=== PATIENT | male | born 2000 | race Caucasian/White ===

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

== ENCOUNTER 2020-02-23 05:52 | Inpatient (IN) | payer MEDICAID ==
[~2020-02-23] VITALS: Ht 165.1 cm; Wt 112.9 kg
[2020-02-23] MEDS ORDERED: SODIUM CHLORIDE 0.9% 1,000 ML IV ONE (06:44)
[2020-02-23] MEDS ORDERED: LEVETIRACETAM 1000MG/100ML 100 ML IV ONE (06:45)
[2020-02-23] MEDS ORDERED: ACETAMINOPHEN 650MG SUPP PR ONE (06:45)
[2020-02-23 06:54] LABS: BASOPHILS % 0.6 % (0.0-2.0); EOSINOPHILS % 2.3 % (0.0-5.0); HEMOGLOBIN. 15.4 g/dL (14.0-18.0); LYMPHOCYTES % 32.2 % (20.0-50.0); MEAN CORPUSCULAR HEMOGLOBIN 29.3 pg (28.0-32.0); MEAN CORPUSCULAR VOLUME 87.5 fL (80.0-94.0); MEAN PLATELET VOLUME 7.8 fl (7.4-10.4); MONOCYTES % 4.1 % (2.0-8.0); NEUTROPHILS % 60.8 % (40.0-76.0); PLATELET 375 x1000/uL (130-400); RED BLOOD CELL COUNT 5.26 mill/uL (4.7-6.1); RED CELL DISTRIBUTION WIDTH 13.4 % (11.6-14.6)
[2020-02-23 07:00] LABS: CHLORIDE 109 mEq/L (98-107)
[2020-02-23 07:01] LABS: PROTHROMBIN TIME 10.3 sec (9.6-11.0)
[2020-02-23] MEDS ORDERED: PIPERACILLIN/TAZ 3.375G PREMIX 50 ML IV ONE (07:30)
[2020-02-23] MEDS ORDERED: VANCOMYCIN 1 G PREMIX 200 ML IV ONE (07:30)
[2020-02-23] MEDS ORDERED: CLONIDINE 0.1MG TABLET PO PRN (11:00)
[2020-02-23] MEDS ORDERED: LORAZEPAM 2MG/ML CPJ IV PRN (11:00)
[2020-02-23] MEDS ORDERED: ONDANSETRON HCL 4MG/2ML INJ IV PRN (11:00)
[2020-02-23] MEDS ORDERED: IPRATROPIUM/ALBUTEROL 0.5-3(2.5)MG/3ML NEB HHN PRN (11:00)
[2020-02-23] MEDS ORDERED: NITROGLYCERIN 0.4MG TABLET SL SL PRN (11:00)
[2020-02-23] MEDS ORDERED: MAGNESIUM/ALUMINUM HYDROXIDE/SIMETHICONE 30ML UDC PO PRN (11:00)
[2020-02-23] MEDS ORDERED: DIPHENHYDRAMINE 50MG/ML VIAL IV PRN (11:00)
[2020-02-23] MEDS ORDERED: KETOROLAC 15MG/ML VIAL IV PRN (11:00)
[2020-02-23] MEDS ORDERED: DOCUSATE SODIUM 100MG CAPSULE PO PRN (11:00)
[2020-02-23] MEDS ORDERED: GUAIFENESIN 200MG/10ML SUGAR FREE UDC PO PRN (11:00)
[2020-02-23] MEDS ORDERED: ACETAMINOPHEN 325MG TABLET PO PRN ×2 (11:00)
[2020-02-23] MEDS ORDERED: CEFTRIAXONE 1 G PREMIX 50 ML IV NR (11:15)
[2020-02-23 12:28] LABS: CLARITY URINE CLOUDY (CLEAR); COLOR URINE YELLOW (YELLOW); KETONES URINE NEGATIVE (NEGATIVE); LEUKOCYTE ESTERASE URINE NEGATIVE (NEGATIVE); NITRITE URINE NEGATIVE (NEGATIVE); OCCULT BLOOD URINE 2+ (NEGATIVE); PROTEIN URINE 1+ (NEGATIVE); SPECIFIC GRAVITY URINE 1.012 (1.005-1.030); UROBILINOGEN URINE 0.2 E.U./dL (0.2-1.0)
[2020-02-23 12:56] LABS: *AMPHETAMINES SCREEN URINE NEGATIVE (NEGATIVE); *BARBITURATES SCREEN URINE NEGATIVE (NEGATIVE); *BENZODIAZEPINES SCREEN URINE PRESUMTIVE POSITIVE (NEGATIVE); *COCAINE SCREEN URINE NEGATIVE (NEGATIVE)
[2020-02-23 12:57] LABS: CHLORIDE 113 mEq/L (98-107)
[2020-02-23 12:57] LABS: CANNABINOID URINE SCREEN NEGATIVE (NEGATIVE); METHADONE URINE SCREEN NEGATIVE (NEGATIVE); OPIATES URINE SCREEN NEGATIVE (NEGATIVE); PHENCYCLIDINE URINE SCREEN NEGATIVE (NEGATIVE)
[2020-02-23] MEDS ORDERED: LEVETIRACETAM 500MG PREMIX 100 ML IV SCH (21:00)
[2020-02-23] MEDS ORDERED: ZOLPIDEM TARTRATE 5MG TABLET PO PRN (21:00)
[2020-02-23] MEDS ORDERED: ZONISAMIDE 100MG CAPSULE PO SCH (22:30)
[2020-02-23] MEDS: ASCORBIC ACID 500 MG TABLET PO SCH (22:58)
[2020-02-23] MEDS: LAMOTRIGINE 100MG TABLET PO SCH (22:59)
[2020-02-23] MEDS: TOPIRAMATE 100MG TABLET PO SCH (22:59)
[2020-02-23 23:21] VITALS: BP 121/71
[2020-02-24 06:06] VITALS: BP 122/71
[2020-02-24 07:17] LABS: CHLORIDE 111 mEq/L (98-107)
[2020-02-24 07:54] LABS: BASOPHILS % 0.7 % (0.0-2.0); EOSINOPHILS % 2.5 % (0.0-5.0); HEMATOCRIT. 42.7 % (42.0-52.0); HEMOGLOBIN. 14.7 g/dL (14.0-18.0); LYMPHOCYTES % 31.7 % (20.0-50.0); MEAN CORPUSCULAR HEMOGLOBIN 29.2 pg (28.0-32.0); MEAN CORPUSCULAR VOLUME 84.8 fL (80.0-94.0); MEAN PLATELET VOLUME 7.9 fl (7.4-10.4); MONOCYTES % 6.1 % (2.0-8.0); PLATELET 244 x1000/uL (130-400); RED BLOOD CELL COUNT 5.04 mill/uL (4.7-6.1); RED CELL DISTRIBUTION WIDTH 13.1 % (11.6-14.6)
[2020-02-24 08:00] VITALS: BP 135/78
[2020-02-24] MEDS ORDERED: CEFTRIAXONE 1 G PREMIX 50 ML IV SCH (09:00)
[2020-02-24] MEDS: LAMOTRIGINE 100MG TABLET PO SCH ×2 (09:37→21:27)
[2020-02-24] MEDS: ASCORBIC ACID 500 MG TABLET PO SCH ×2 (09:37→21:28)
[2020-02-24] MEDS: ZINC SULFATE 220 MG ( 50 ) CAPSULE PO SCH (09:38)
[2020-02-24] MEDS: TOPIRAMATE 100MG TABLET PO SCH ×2 (09:38→21:27)
[2020-02-24] MEDS: LEVETIRACETAM 500MG TABLET PO SCH ×2 (11:54→21:28)
[2020-02-24 12:00] VITALS: BP 135/82
[2020-02-24] MEDS ORDERED: LEVETIRACETAM 500MG PREMIX 100 ML IV SCH (12:00)
[2020-02-24] MEDS: CEFTRIAXONE 1,000 MG in DEXTROSE 5% WATER 50 ML IV SCH (12:24)
[2020-02-24 16:00] VITALS: BP 135/85
[2020-02-24 20:00] VITALS: BP 115/58
[2020-02-24] MEDS ORDERED: ZONISAMIDE 100MG CAPSULE PO SCH (21:00)
[2020-02-25] VITALS: BP 116/69
[2020-02-25 04:00] VITALS: BP 113/56
[2020-02-25 08:00] VITALS: BP 134/59
[2020-02-25] MEDS: LAMOTRIGINE 100MG TABLET PO SCH (09:30)
[2020-02-25] MEDS: ASCORBIC ACID 500 MG TABLET PO SCH (09:30)
[2020-02-25] MEDS: TOPIRAMATE 100MG TABLET PO SCH (09:30)
[2020-02-25] MEDS: ZINC SULFATE 220 MG ( 50 ) CAPSULE PO SCH (09:30)
[2020-02-25] MEDS: LEVETIRACETAM 500MG TABLET PO SCH (09:30)
[2020-02-25] MEDS: CEFTRIAXONE 1,000 MG in DEXTROSE 5% WATER 50 ML IV SCH ×2 (11:00→11:24)
[2020-02-25 12:00] VITALS: BP 105/70
[2020-02-25 13:53] VITALS: BP 105/77
== END 2020-02-25 16:00 | disposition home or self-care (01) | DRG 53 ==
LOC: ER 05:52 → 7WST 10:11 → EDBEDREQ 10:13 → EDBEDREQTM 10:13 → EDBEDREQSVC 10:13 → ENRESERV 20:45 → 5WST 02-24 17:00
PROVIDERS: ADMIT Internal Medicine; ATTEND Internal Medicine
DX: G40.909 Epilepsy, unspecified, not intractable, without status epilepticus (principal); G92 Toxic encephalopathy; J69.0 Pneumonitis due to inhalation of food and vomit; N17.9 Acute kidney failure, unspecified; Z20.828 Contact with and (suspected) exposure to other viral communicable diseases; F84.0 Autistic disorder; E87.2 Acidosis; Z91.012 Allergy to eggs; Z79.2 Long term (current) use of antibiotics; Z79.899 Other long term (current) drug therapy
CPT/HCPCS: 36415; 71045; 80048; 80053; 80305; 81003; 83605; 83735; 84100; 84145; 84484; 85025; 87635; 93005; 96365; 99291; J0696; J1953; J2543; J3370; J7030; J7060

== ENCOUNTER 2020-02-26 20:49 | Inpatient (IN) | payer MEDICAID ==
[~2020-02-26] VITALS: Ht 170.2 cm; Wt 115.7 kg
[2020-02-26] MEDS ORDERED: LEVETIRACETAM 1000MG/100ML 100 ML IV ONE (21:00)
[2020-02-26] MEDS ORDERED: SODIUM CHLORIDE 0.9% 1,000 ML IV ONE ×2 (21:02→22:51)
[2020-02-26 21:37] LABS: BASOPHILS % 0.5 % (0.0-2.0); EOSINOPHILS % 1.1 % (0.0-5.0); HEMATOCRIT. 45.1 % (42.0-52.0); HEMOGLOBIN. 15.2 g/dL (14.0-18.0); LYMPHOCYTES % 13.2 % (20.0-50.0); MEAN CORPUSCULAR HEMOGLOBIN 28.9 pg (28.0-32.0); MEAN CORPUSCULAR VOLUME 85.8 fL (80.0-94.0); MEAN PLATELET VOLUME 8.3 fl (7.4-10.4); MONOCYTES % 2.5 % (2.0-8.0); NEUTROPHILS % 82.7 % (40.0-76.0); RED BLOOD CELL COUNT 5.25 mill/uL (4.7-6.1); RED CELL DISTRIBUTION WIDTH 13.1 % (11.6-14.6)
[2020-02-26 21:40] LABS: CHLORIDE 112 mEq/L (98-107)
[2020-02-26 21:41] LABS: PLATELET 361 x1000/uL (130-400)
[2020-02-26 21:44] LABS: ETHANOL BLOOD < 10 mg/dL
[2020-02-26 21:52] LABS: CLARITY URINE CLOUDY (CLEAR); COLOR URINE YELLOW (YELLOW); KETONES URINE NEGATIVE (NEGATIVE); LEUKOCYTE ESTERASE URINE NEGATIVE (NEGATIVE); NITRITE URINE NEGATIVE (NEGATIVE); OCCULT BLOOD URINE 1+ (NEGATIVE); PROTEIN URINE 2+ (NEGATIVE); SPECIFIC GRAVITY URINE 1.017 (1.005-1.030); UROBILINOGEN URINE 0.2 E.U./dL (0.2-1.0)
[2020-02-26 22:02] LABS: *AMPHETAMINES SCREEN URINE NEGATIVE (NEGATIVE); *BARBITURATES SCREEN URINE NEGATIVE (NEGATIVE); *BENZODIAZEPINES SCREEN URINE PRESUMTIVE POSITIVE (NEGATIVE); *COCAINE SCREEN URINE NEGATIVE (NEGATIVE)
[2020-02-26 22:04] LABS: CANNABINOID URINE SCREEN NEGATIVE (NEGATIVE); METHADONE URINE SCREEN NEGATIVE (NEGATIVE); OPIATES URINE SCREEN NEGATIVE (NEGATIVE); PHENCYCLIDINE URINE SCREEN NEGATIVE (NEGATIVE)
[2020-02-26] MEDS ORDERED: ACETAMINOPHEN 325MG TABLET PO ONE (22:45)
[2020-02-26] MEDS ORDERED: CEFTRIAXONE 1 G PREMIX 50 ML IV ONE (22:45)
[2020-02-27 09:00] VITALS: BP 120/75
[2020-02-27] MEDS ORDERED: LORAZEPAM 2MG/ML CPJ IV PRN (09:30)
[2020-02-27] MEDS ORDERED: ACETAMINOPHEN 325MG TABLET PO PRN (09:30)
[2020-02-27] MEDS ORDERED: ONDANSETRON HCL 4MG/2ML INJ IV PRN (09:30)
[2020-02-27 15:32] LABS: BASOPHILS % 0.8 % (0.0-2.0); EOSINOPHILS % 1.6 % (0.0-5.0); HEMATOCRIT. 41.3 % (42.0-52.0); LYMPHOCYTES % 24.1 % (20.0-50.0); MEAN CORPUSCULAR HEMOGLOBIN 28.7 pg (28.0-32.0); MEAN CORPUSCULAR VOLUME 84.5 fL (80.0-94.0); MEAN PLATELET VOLUME 7.8 fl (7.4-10.4); MONOCYTES % 6.7 % (2.0-8.0); NEUTROPHILS % 66.8 % (40.0-76.0); PLATELET 284 x1000/uL (130-400); RED BLOOD CELL COUNT 4.89 mill/uL (4.7-6.1); RED CELL DISTRIBUTION WIDTH 13.4 % (11.6-14.6)
[2020-02-27 15:41] LABS: CHLORIDE 115 mEq/L (98-107)
[2020-02-27 20:00] VITALS: BP 134/79
[2020-02-27] MEDS: TOPIRAMATE 100MG TABLET PO SCH (21:23)
[2020-02-27] MEDS: LEVETIRACETAM 500MG TABLET PO SCH (21:23)
[2020-02-27] MEDS: LAMOTRIGINE 100MG TABLET PO SCH (21:23)
[2020-02-27] MEDS: ZONISAMIDE 100MG CAPSULE PO SCH (21:41)
[2020-02-28] VITALS: BP 116/69
[2020-02-28 04:00] VITALS: BP 118/69
[2020-02-28 08:00] VITALS: BP_SYST 121; BP_SYST 122; BP_DIAS 65; BP_DIAS 71
[2020-02-28] MEDS: LAMOTRIGINE 100MG TABLET PO SCH (08:17)
[2020-02-28] MEDS: ZONISAMIDE 100MG CAPSULE PO SCH (08:17)
[2020-02-28] MEDS: LEVETIRACETAM 500MG TABLET PO SCH (08:17)
[2020-02-28] MEDS: TOPIRAMATE 100MG TABLET PO SCH (08:17)
[2020-02-28 12:00] VITALS: BP 104/64
[2020-02-28 14:15] VITALS: BP 104/64
[2020-02-28 16:00] VITALS: BP 112/66
[2020-02-28] MEDS ORDERED: PIPERONYL/PYRETHRINS (RID)120 ML SHAMPOO TOP NR (17:00)
== END 2020-02-28 18:25 | disposition home or self-care (01) | DRG 53 ==
LOC: ER 20:49 → MICUSO 23:47 → UNDOADMIN 23:57 → MICUSO 23:57 → 8WST 02-27 07:36
PROVIDERS: ADMIT Internal Medicine Nephrology; ATTEND Internal Medicine
DX: G40.409 Other generalized epilepsy and epileptic syndromes, not intractable, without status epilepticus (principal); B85.2 Pediculosis, unspecified; E87.8 Other disorders of electrolyte and fluid balance, not elsewhere classified; F84.0 Autistic disorder; R65.10 Systemic inflammatory response syndrome (SIRS) of non-infectious origin without acute organ dysfunction; Z91.14 Patient's other noncompliance with medication regimen; Z91.19 Patient's noncompliance with other medical treatment and regimen; Z91.012 Allergy to eggs; Z79.2 Long term (current) use of antibiotics; Z79.899 Other long term (current) drug therapy
CPT/HCPCS: 36415; 71045; 80048; 80053; 80305; 80320; 81003; 82140; 84145; 85025; 93005; 99291; J0696; J1953; G0480

== ENCOUNTER 2020-03-04 23:16 | Emergency (ER) | payer MEDICAID ==
[~2020-03-04] VITALS: Ht 172.7 cm; Wt 76.0 kg
[~2020-03-04 23:16] MED LIST changes: -LEVO750T21 MT
[2020-03-04] MEDS ORDERED: SODIUM CHLORIDE 0.9% 1,000 ML IV ONE (23:24)
[2020-03-04] MEDS ORDERED: IBUPROFEN 600MG TABLET PO STA (23:24)
[2020-03-04] MEDS ORDERED: LORAZEPAM 1MG TABLET PO ONE (23:30)
[2020-03-05 00:54] LABS: HEMATOCRIT. 43.1 % (42.0-52.0); HEMOGLOBIN. 14.6 g/dL (14.0-18.0); MEAN CORPUSCULAR HEMOGLOBIN 29.1 pg (28.0-32.0); MEAN CORPUSCULAR VOLUME 86.1 fL (80.0-94.0); MEAN PLATELET VOLUME 8.4 fl (7.4-10.4); PLATELET 287 x1000/uL (130-400); RED BLOOD CELL COUNT 5.01 mill/uL (4.7-6.1); RED CELL DISTRIBUTION WIDTH 13.3 % (11.6-14.6)
[2020-03-05 01:04] LABS: CHLORIDE 115 mEq/L (98-107)
[2020-03-05 01:08] LABS: ETHANOL BLOOD < 10 mg/dL
[2020-03-05 01:08] LABS: CLARITY URINE CLEAR (CLEAR); COLOR URINE YELLOW (YELLOW); KETONES URINE NEGATIVE (NEGATIVE); LEUKOCYTE ESTERASE URINE NEGATIVE (NEGATIVE); NITRITE URINE NEGATIVE (NEGATIVE); OCCULT BLOOD URINE 1+ (NEGATIVE); PROTEIN URINE 2+ (NEGATIVE); SPECIFIC GRAVITY URINE 1.018 (1.005-1.030); UROBILINOGEN URINE 0.2 E.U./dL (0.2-1.0)
[2020-03-05] MEDS ORDERED: SODIUM CHLORIDE 0.9% 1000ML BAG (SEPSIS BOLUS) IV ONE (01:15)
[2020-03-05] MEDS ORDERED: LEVETIRACETAM 500MG PREMIX 100 ML IV SCH (01:15)
[2020-03-05 01:19] LABS: CANNABINOID URINE SCREEN NEGATIVE (NEGATIVE); OPIATES URINE SCREEN NEGATIVE (NEGATIVE); PHENCYCLIDINE URINE SCREEN NEGATIVE (NEGATIVE)
[2020-03-05 01:20] LABS: *AMPHETAMINES SCREEN URINE NEGATIVE (NEGATIVE); *BARBITURATES SCREEN URINE NEGATIVE (NEGATIVE); *BENZODIAZEPINES SCREEN URINE NEGATIVE (NEGATIVE); *COCAINE SCREEN URINE NEGATIVE (NEGATIVE); METHADONE URINE SCREEN NEGATIVE (NEGATIVE)
[2020-03-05 01:29] LABS: PLATELET ESTIMATE NORMAL
[2020-03-05 04:31] VITALS: BP 120/70
== END 2020-03-05 05:20 | disposition home or self-care (01) ==
LOC: ER 23:27
DX: R56.9 Unspecified convulsions (principal); D72.829 Elevated white blood cell count, unspecified; E87.2 Acidosis; Z91.012 Allergy to eggs; Z79.899 Other long term (current) drug therapy
CPT/HCPCS: 36415; 80053; 80305; 80320; 81003; 82140; 82962; 83605; 84145; 85025; 87040; 93005; 96361; 96374; 99284; J1953; J7030; G0480

== ENCOUNTER 2020-03-14 22:19 | Emergency (ER) | payer MEDICAID ==
[~2020-03-14] VITALS: Ht 170.2 cm; Wt 100.0 kg
[2020-03-14] MEDS ORDERED: ONDANSETRON HCL 4MG/2ML INJ IV STA (23:24)
[2020-03-14] MEDS ORDERED: SODIUM CHLORIDE 0.9% 1,000 ML IV ONE (23:24)
[2020-03-14] MEDS ORDERED: LEVETIRACETAM 500MG PREMIX 100 ML IV ONE (23:30)
[2020-03-14] MEDS ORDERED: LORAZEPAM 2MG/ML CPJ IV ONE (23:30)
[2020-03-15 00:18] LABS: BASOPHILS % 0.6 % (0.0-2.0); CHLORIDE 114 mEq/L (98-107); EOSINOPHILS % 0.4 % (0.0-5.0); HEMATOCRIT. 42.7 % (42.0-52.0); HEMOGLOBIN. 14.7 g/dL (14.0-18.0); LYMPHOCYTES % 8.6 % (20.0-50.0); MEAN CORPUSCULAR HEMOGLOBIN 29.1 pg (28.0-32.0); MEAN CORPUSCULAR VOLUME 84.4 fL (80.0-94.0); MEAN PLATELET VOLUME 8.5 fl (7.4-10.4); MONOCYTES % 4.5 % (2.0-8.0); NEUTROPHILS % 85.9 % (40.0-76.0); PLATELET 303 x1000/uL (130-400); RED BLOOD CELL COUNT 5.05 mill/uL (4.7-6.1); RED CELL DISTRIBUTION WIDTH 13.2 % (11.6-14.6)
[2020-03-15 02:30] VITALS: BP 116/63
== END 2020-03-15 02:33 | disposition home or self-care (01) ==
LOC: ER 22:19
DX: G40.909 Epilepsy, unspecified, not intractable, without status epilepticus (principal); F79 Unspecified intellectual disabilities; Z91.012 Allergy to eggs
CPT/HCPCS: 36415; 71045; 80053; 85025; 93005; 96365; 96375; 99285; J1953; J2060; J2405; J7030

== ENCOUNTER 2020-04-14 20:57 | Emergency (ER) | payer MEDICAID ==
[~2020-04-14] VITALS: Ht 165.1 cm; Wt 70.0 kg
[~2020-04-14 20:57] MED LIST changes: -LAMO100T40 MT; -LEVE1000 MT; -TOPA200 MT; -ZONI100C45 PO
[2020-04-15] MEDS ORDERED: ONDANSETRON HCL 4MG/2ML INJ IV STA (01:23)
[2020-04-15] MEDS ORDERED: LEVETIRACETAM 500MG PREMIX 100 ML IV ONE (01:30)
[2020-04-15] MEDS ORDERED: SODIUM CHLORIDE 0.9% 1,000 ML IV ONE (01:30)
[2020-04-15 01:41] LABS: BASOPHILS % 0.7 % (0.0-2.0); EOSINOPHILS % 0.3 % (0.0-5.0); HEMATOCRIT. 43.9 % (42.0-52.0); LYMPHOCYTES % 17.2 % (20.0-50.0); MEAN CORPUSCULAR HEMOGLOBIN 29.1 pg (28.0-32.0); MEAN CORPUSCULAR VOLUME 84.9 fL (80.0-94.0); MEAN PLATELET VOLUME 7.8 fl (7.4-10.4); MONOCYTES % 4.9 % (2.0-8.0); NEUTROPHILS % 76.9 % (40.0-76.0); PLATELET 281 x1000/uL (130-400); RED BLOOD CELL COUNT 5.16 mill/uL (4.7-6.1); RED CELL DISTRIBUTION WIDTH 13.9 % (11.6-14.6)
[2020-04-15 01:45] LABS: CHLORIDE 111 mEq/L (98-107)
[2020-04-15 04:27] VITALS: BP 114/58
== END 2020-04-15 04:30 | disposition home or self-care (01) ==
LOC: ER 20:57
DX: G40.909 Epilepsy, unspecified, not intractable, without status epilepticus (principal); I49.9 Cardiac arrhythmia, unspecified; Z91.012 Allergy to eggs
CPT/HCPCS: 36415; 80053; 85025; 93005; 96361; 96365; 96375; 99284; J1953; J2405; J7030

== ENCOUNTER 2020-04-26 10:23 | Emergency (ER) | payer MEDICAID ==
[~2020-04-26] VITALS: Ht 165.1 cm; Wt 55.0 kg
[2020-04-26] MEDS ORDERED: LEVETIRACETAM 1000MG/100ML 100 ML IV ONE (11:15)
[2020-04-26 12:10] LABS: CHLORIDE 114 mEq/L (98-107)
[2020-04-26 12:12] LABS: BASOPHILS % 0.2 % (0.0-2.0); EOSINOPHILS % 1.2 % (0.0-5.0); HEMATOCRIT. 46.5 % (42.0-52.0); HEMOGLOBIN. 15.5 g/dL (14.0-18.0); LYMPHOCYTES % 14.3 % (20.0-50.0); MEAN CORPUSCULAR HEMOGLOBIN 28.9 pg (28.0-32.0); MEAN CORPUSCULAR VOLUME 86.4 fL (80.0-94.0); MEAN PLATELET VOLUME 8.4 fl (7.4-10.4); MONOCYTES % 7.2 % (2.0-8.0); NEUTROPHILS % 77.1 % (40.0-76.0); PLATELET 309 x1000/uL (130-400); RED BLOOD CELL COUNT 5.37 mill/uL (4.7-6.1); RED CELL DISTRIBUTION WIDTH 13.9 % (11.6-14.6)
[2020-04-26 12:19] LABS: ETHANOL BLOOD < 10 mg/dL
[2020-04-26 12:57] VITALS: BP 142/86
== END 2020-04-26 14:38 | disposition home or self-care (01) ==
LOC: ER 10:45
DX: G40.909 Epilepsy, unspecified, not intractable, without status epilepticus (principal); Z91.012 Allergy to eggs
CPT/HCPCS: 36415; 80053; 80320; 85025; 93005; 96374; 99284; J1953; G0480

== ENCOUNTER 2020-06-08 11:11 | Emergency (ER) | payer MEDICAID ==
[~2020-06-08] VITALS: Ht 175.3 cm; Wt 134.0 kg
[2020-06-08] MEDS ORDERED: LEVETIRACETAM 1000MG PREMIX 100 ML IV ONE (11:45)
[2020-06-08 12:11] LABS: BASOPHILS % 0.6 % (0.0-2.0); EOSINOPHILS % 2.6 % (0.0-5.0); HEMATOCRIT. 47.5 % (42.0-52.0); HEMOGLOBIN. 15.9 g/dL (14.0-18.0); LYMPHOCYTES % 25.4 % (20.0-50.0); MEAN CORPUSCULAR VOLUME 86.5 fL (80.0-94.0); MONOCYTES % 4.2 % (2.0-8.0); NEUTROPHILS % 67.2 % (40.0-76.0); PLATELET 344 x1000/uL (130-400); RED BLOOD CELL COUNT 5.49 mill/uL (4.7-6.1)
[2020-06-08 12:19] LABS: CHLORIDE 111 mEq/L (98-107)
[2020-06-08 12:23] LABS: ETHANOL BLOOD < 10 mg/dL
[2020-06-08 14:00] VITALS: BP 125/59
== END 2020-06-08 14:22 | disposition home or self-care (01) ==
LOC: ER 11:17
DX: R56.9 Unspecified convulsions (principal); Z91.012 Allergy to eggs; Z98.890 Other specified postprocedural states
CPT/HCPCS: 36415; 80053; 80320; 85025; 96365; 99284; J1953; G0480

== ENCOUNTER 2020-07-28 17:26 | Emergency (ER) | payer MEDICAID ==
[~2020-07-28] VITALS: Ht 177.8 cm; Wt 91.0 kg
[2020-07-28] MEDS ORDERED: LEVETIRACETAM 500MG PREMIX 100 ML IV ONE (17:45)
[2020-07-28] MEDS ORDERED: SODIUM CHLORIDE 0.9% 1,000 ML IV ONE (17:45)
[2020-07-28 19:03] LABS: BASOPHILS % 0.4 % (0.0-2.0); EOSINOPHILS % 1.4 % (0.0-5.0); HEMATOCRIT. 46.9 % (42.0-52.0); HEMOGLOBIN. 16.1 g/dL (14.0-18.0); LYMPHOCYTES % 12.7 % (20.0-50.0); MEAN CORPUSCULAR HEMOGLOBIN 28.8 pg (28.0-32.0); MEAN CORPUSCULAR VOLUME 83.9 fL (80.0-94.0); MONOCYTES % 4.7 % (2.0-8.0); NEUTROPHILS % 80.8 % (40.0-76.0); PLATELET 372 x1000/uL (130-400); RED BLOOD CELL COUNT 5.59 mill/uL (4.7-6.1); RED CELL DISTRIBUTION WIDTH 13.1 % (11.6-14.6)
[2020-07-28 19:10] LABS: CHLORIDE 112 mEq/L (98-107)
[2020-07-28 19:32] LABS: PROTHROMBIN TIME 10.4 sec (9.6-11.0)
[2020-07-28 21:32] VITALS: BP 130/74
== END 2020-07-28 21:34 | disposition home or self-care (01) ==
LOC: ER 17:26
DX: R56.9 Unspecified convulsions (principal); J18.9 Pneumonia, unspecified organism; F84.0 Autistic disorder; Z91.012 Allergy to eggs
CPT/HCPCS: 36415; 71045; 80053; 83605; 85025; 85610; 93005; 96365; 99285; J1953; J7030

== ENCOUNTER 2020-09-08 22:36 | Emergency (ER) | payer MEDICAID ==
[~2020-09-08] VITALS: Ht 182.9 cm; Wt 127.0 kg
[2020-09-08 23:10] VITALS: BP 128/50
[2020-09-08] MEDS ORDERED: ONDANSETRON HCL 4MG/2ML INJ IV ONE (23:15)
[2020-09-08] MEDS ORDERED: SODIUM CHLORIDE 0.9% 1,000 ML IV ONE (23:15)
[2020-09-08] MEDS ORDERED: LEVETIRACETAM 1000MG PREMIX 100 ML IV ONE (23:15)
[2020-09-08 23:40] LABS: BASOPHILS % 0.4 % (0.0-2.0); EOSINOPHILS % 2.1 % (0.0-5.0); HEMATOCRIT. 49.5 % (42.0-52.0); HEMOGLOBIN. 16.3 g/dL (14.0-18.0); LYMPHOCYTES % 28.1 % (20.0-50.0); MEAN CORPUSCULAR HEMOGLOBIN 28.6 pg (28.0-32.0); MEAN CORPUSCULAR VOLUME 86.8 fL (80.0-94.0); MEAN PLATELET VOLUME 8.1 fl (7.4-10.4); MONOCYTES % 5.3 % (2.0-8.0); NEUTROPHILS % 64.1 % (40.0-76.0); PLATELET 354 x1000/uL (130-400); RED CELL DISTRIBUTION WIDTH 13.3 % (11.6-14.6)
[2020-09-08 23:49] LABS: CHLORIDE 110 mEq/L (98-107)
== END 2020-09-09 01:31 | disposition home or self-care (01) ==
LOC: ER 22:36
DX: G40.909 Epilepsy, unspecified, not intractable, without status epilepticus (principal); F84.0 Autistic disorder; Z91.012 Allergy to eggs
CPT/HCPCS: 36415; 80053; 82962; 85025; 93005; 96365; 96375; 99284; J1953; J2405; J7030; J7040; Z7610

== ENCOUNTER 2020-09-27 18:58 | Emergency (ER) | payer MEDICAID ==
[~2020-09-27] VITALS: Ht 172.7 cm; Wt 137.0 kg
[2020-09-27 20:04] LABS: BASOPHILS % 0.4 % (0.0-2.0); EOSINOPHILS % 0.9 % (0.0-5.0); HEMATOCRIT. 47.2 % (42.0-52.0); HEMOGLOBIN. 15.7 g/dL (14.0-18.0); MEAN CORPUSCULAR HEMOGLOBIN 28.5 pg (28.0-32.0); MEAN CORPUSCULAR VOLUME 85.8 fL (80.0-94.0); MEAN PLATELET VOLUME 8.1 fl (7.4-10.4); MONOCYTES % 4.9 % (2.0-8.0); NEUTROPHILS % 85.8 % (40.0-76.0); PLATELET 314 x1000/uL (130-400); RED CELL DISTRIBUTION WIDTH 13.4 % (11.6-14.6)
[2020-09-27 20:11] LABS: CHLORIDE 112 mEq/L (98-107)
[2020-09-27 20:15] LABS: ETHANOL BLOOD < 10 mg/dL
[2020-09-27 20:25] LABS: CARBAMAZEPINE < 0.5 ug/mL (4-12); PHENOBARBITAL < 2.1 ug/mL (15.0-40.0)
[2020-09-27 20:39] LABS: VALPROIC ACID < 3.0 ug/mL (50-100)
[2020-09-27] MEDS: SODIUM CHLORIDE 0.9% 1,000 ML IV ONE (21:18)
[2020-09-27] MEDS: LAMOTRIGINE 100MG TABLET PO ONE (21:18)
[2020-09-27] MEDS: LEVETIRACETAM 500MG TABLET PO ONE (21:19)
[2020-09-27] MEDS: ZONISAMIDE 100MG CAPSULE PO ONE ×2 (22:03→22:04)
[2020-09-27 22:15] VITALS: BP 127/83
== END 2020-09-27 22:40 | disposition home or self-care (01) ==
LOC: ER 18:58
DX: G40.909 Epilepsy, unspecified, not intractable, without status epilepticus (principal); R03.0 Elevated blood-pressure reading, without diagnosis of hypertension; F84.0 Autistic disorder; Z91.012 Allergy to eggs
CPT/HCPCS: 36415; 80053; 80156; 80165; 80184; 80185; 80320; 85025; 93005; 96360; 99284; J7030; Z7610; G0480

== ENCOUNTER 2020-10-14 18:36 | Inpatient (IN) | payer MEDICAID ==
[~2020-10-14] VITALS: Ht 172.7 cm; Wt 68.0 kg
[~2020-10-14 18:36] MED LIST changes: +LAMO100T16 PO; -LAMO200T9 PO
[2020-10-14] MEDS ORDERED: LEVETIRACETAM 500MG PREMIX 100 ML IV ONE (19:15)
[2020-10-14] MEDS ORDERED: SODIUM CHLORIDE 0.9% 1,000 ML IV ONE (19:15)
[2020-10-14 19:21] LABS: BASOPHILS % 0.8 % (0.0-2.0); EOSINOPHILS % 1.7 % (0.0-5.0); HEMATOCRIT. 50.9 % (42.0-52.0); LYMPHOCYTES % 35.7 % (20.0-50.0); MEAN CORPUSCULAR HEMOGLOBIN 30.4 pg (28.0-32.0); MEAN CORPUSCULAR VOLUME 90.7 fL (80.0-94.0); MEAN PLATELET VOLUME 8.5 fl (7.4-10.4); MONOCYTES % 4.1 % (2.0-8.0); NEUTROPHILS % 57.7 % (40.0-76.0); PLATELET 491 x1000/uL (130-400); RED BLOOD CELL COUNT 5.61 mill/uL (4.7-6.1); RED CELL DISTRIBUTION WIDTH 13.5 % (11.6-14.6)
[2020-10-14 19:33] LABS: CHLORIDE 106 mEq/L (98-107)
[2020-10-14] MEDS ORDERED: SODIUM CHLORIDE 0.9% 1000ML BAG (SEPSIS BOLUS) IV ONE (20:45)
[2020-10-14 21:19] LABS: BG BASE EXCESS -5.7 mmol/L (-2.0-2.0); BG CARBOXYHEMOGLOBIN 0.3 % (0.5-1.5); BG DEOXYHEMOGLOBIN 2.8 % (0.0-5.0); BG FRACTION INSPIRED OXYGEN 21; BG HCO3 ACT 19.4 mmol/L (22.0-26.0); BG METHEMOGLOBIN 0.3 % (0.0-1.5); BG OXYGEN SATURATION 97.2 % (92.0-98.5); BG OXYHEMOGLOBIN 96.6 % (94.0-97.0); BG PH 7.338 (7.350-7.450); BG PO2 99.4 mmHg (75.0-100.0); BG SAMPLE SITE RIGHT RADIAL; BG TOTAL HEMOGLOBIN 15.7 g/dL (12.0-18.0); BG VENT MODE ROOM AIR
[2020-10-14 22:25] LABS: CLARITY URINE CLEAR (CLEAR); COLOR URINE YELLOW (YELLOW); KETONES URINE NEGATIVE (NEGATIVE); LEUKOCYTE ESTERASE URINE NEGATIVE (NEGATIVE); NITRITE URINE NEGATIVE (NEGATIVE); OCCULT BLOOD URINE NEGATIVE (NEGATIVE); PROTEIN URINE 1+ (NEGATIVE); SPECIFIC GRAVITY URINE 1.016 (1.005-1.030); UROBILINOGEN URINE 0.2 E.U./dL (0.2-1.0)
[2020-10-14 22:38] LABS: *AMPHETAMINES SCREEN URINE NEGATIVE (NEGATIVE); *BARBITURATES SCREEN URINE NEGATIVE (NEGATIVE); *BENZODIAZEPINES SCREEN URINE PRESUMTIVE POSITIVE (NEGATIVE)
[2020-10-14 22:39] LABS: *COCAINE SCREEN URINE NEGATIVE (NEGATIVE); CANNABINOID URINE SCREEN NEGATIVE (NEGATIVE); METHADONE URINE SCREEN NEGATIVE (NEGATIVE); OPIATES URINE SCREEN NEGATIVE (NEGATIVE); PHENCYCLIDINE URINE SCREEN NEGATIVE (NEGATIVE)
[2020-10-15 01:30] VITALS: BP 124/76
[2020-10-15] MEDS ORDERED: LORAZEPAM 2MG/ML CPJ IV PRN (01:45)
[2020-10-15 08:00] VITALS: BP 125/64
[2020-10-15] MEDS ORDERED: LAMOTRIGINE 100MG TABLET PO SCH ×2 (09:00→21:00)
[2020-10-15] MEDS ORDERED: LEVETIRACETAM 500MG TABLET PO SCH ×2 (09:00→21:00)
[2020-10-15] MEDS ORDERED: GADOTERATE MEGLUMINE 5 MMOL/10 ML VIAL IV ONE (11:41)
[2020-10-15 11:50] LABS: CHLORIDE 111 mEq/L (98-107)
[2020-10-15 12:00] VITALS: BP 112/64
[2020-10-15] MEDS ORDERED: CEFTRIAXONE 1,000 MG in DEXTROSE 5% WATER 50 ML IV SCH (15:00)
[2020-10-15 16:20] LABS: BASOPHILS % 0.6 % (0.0-2.0); EOSINOPHILS % 1.4 % (0.0-5.0); HEMATOCRIT. 40.8 % (42.0-52.0); LYMPHOCYTES % 25.1 % (20.0-50.0); MEAN CORPUSCULAR HEMOGLOBIN 28.9 pg (28.0-32.0); MEAN CORPUSCULAR VOLUME 84.6 fL (80.0-94.0); MONOCYTES % 7.6 % (2.0-8.0); NEUTROPHILS % 65.3 % (40.0-76.0); PLATELET 296 x1000/uL (130-400); RED BLOOD CELL COUNT 4.83 mill/uL (4.7-6.1); RED CELL DISTRIBUTION WIDTH 13.8 % (11.6-14.6)
[2020-10-15] MEDS ORDERED: KEPP500 PO (17:46)
[2020-10-15 18:18] VITALS: BP 112/64
[2020-10-15 20:00] VITALS: BP 113/71
[2020-10-15] MEDS ORDERED: ZONISAMIDE 100MG CAPSULE PO SCH (21:00)
== END 2020-10-15 20:34 | disposition home or self-care (01) | DRG 720 ==
LOC: ER 18:36 → 8WST 22:45 → ENRESERV 23:59
PROVIDERS: ADMIT Internal Medicine; ATTEND Internal Medicine
DX: A41.9 Sepsis, unspecified organism (principal); F84.0 Autistic disorder; R65.20 Severe sepsis without septic shock; G40.909 Epilepsy, unspecified, not intractable, without status epilepticus; Z91.14 Patient's other noncompliance with medication regimen; Z91.012 Allergy to eggs; Z79.899 Other long term (current) drug therapy
CPT/HCPCS: 36415; 36600; 70553; 71045; 80048; 80053; 80305; 80307; 80329; 81003; 82375; 82805; 83605; 84145; 85025; 93005; 99285; A9577; J0696; J1953; J7030; J7040; J7060

== ENCOUNTER 2020-10-19 17:25 | Emergency (ER) | payer MEDICAID ==
[~2020-10-19] VITALS: Ht 172.7 cm; Wt 98.0 kg
[~2020-10-19 17:25] MED LIST changes: +KEPP500 PO; -LEVE1000 PO
[2020-10-19] MEDS ORDERED: LEVETIRACETAM 500MG PREMIX 100 ML IV ONE (17:45)
[2020-10-19 18:23] LABS: BASOPHILS % 0.4 % (0.0-2.0); EOSINOPHILS % 2.7 % (0.0-5.0); HEMATOCRIT. 44.8 % (42.0-52.0); HEMOGLOBIN. 15.7 g/dL (14.0-18.0); LYMPHOCYTES % 18.7 % (20.0-50.0); MEAN CORPUSCULAR HEMOGLOBIN 29.6 pg (28.0-32.0); MEAN CORPUSCULAR VOLUME 84.4 fL (80.0-94.0); MONOCYTES % 7.3 % (2.0-8.0); NEUTROPHILS % 70.9 % (40.0-76.0); PLATELET 314 x1000/uL (130-400); RED BLOOD CELL COUNT 5.31 mill/uL (4.7-6.1); RED CELL DISTRIBUTION WIDTH 13.5 % (11.6-14.6)
[2020-10-19 18:28] LABS: CHLORIDE 109 mEq/L (98-107)
[2020-10-19 20:25] VITALS: BP 129/74
== END 2020-10-19 20:32 | disposition home or self-care (01) ==
LOC: ER 17:25
DX: G40.909 Epilepsy, unspecified, not intractable, without status epilepticus (principal); I49.9 Cardiac arrhythmia, unspecified; Z91.012 Allergy to eggs; Z98.890 Other specified postprocedural states
CPT/HCPCS: 36415; 80053; 85025; 93005; 96365; 99284; J1953

== ENCOUNTER 2020-10-20 07:51 | Emergency (ER) | payer MEDICAID ==
[~2020-10-20] VITALS: Ht 167.6 cm; Wt 77.0 kg
[2020-10-20] MEDS ORDERED: LEVETIRACETAM 1000MG PREMIX 100 ML IV ONE (08:45)
[2020-10-20 10:11] LABS: BASOPHILS % 0.2 % (0.0-2.0); EOSINOPHILS % 0.6 % (0.0-5.0); HEMATOCRIT. 47.3 % (42.0-52.0); HEMOGLOBIN. 15.8 g/dL (14.0-18.0); LYMPHOCYTES % 7.5 % (20.0-50.0); MEAN CORPUSCULAR HEMOGLOBIN 29.1 pg (28.0-32.0); MEAN CORPUSCULAR VOLUME 87.1 fL (80.0-94.0); MEAN PLATELET VOLUME 8.2 fl (7.4-10.4); MONOCYTES % 8.2 % (2.0-8.0); NEUTROPHILS % 83.5 % (40.0-76.0); PLATELET 279 x1000/uL (130-400); RED BLOOD CELL COUNT 5.42 mill/uL (4.7-6.1); RED CELL DISTRIBUTION WIDTH 13.6 % (11.6-14.6)
[2020-10-20 10:18] LABS: CHLORIDE 113 mEq/L (98-107)
[2020-10-20 10:22] LABS: ETHANOL BLOOD < 10 mg/dL
[2020-10-20 11:00] VITALS: BP 117/82
== END 2020-10-20 11:30 | disposition home or self-care (01) ==
LOC: ER 07:58
DX: R56.9 Unspecified convulsions (principal); F84.0 Autistic disorder
CPT/HCPCS: 36415; 80053; 80320; 85025; 96365; 99284; J1953; G0480

== ENCOUNTER 2020-11-11 10:01 | Inpatient (IN) | payer MEDICAID ==
[~2020-11-11] VITALS: Ht 172.7 cm; Wt 113.9 kg
[2020-11-11] MEDS ORDERED: LEVETIRACETAM 1000MG PREMIX 100 ML IV ONE (10:30)
[2020-11-11 10:32] LABS: HEMATOCRIT. 50.4 % (42.0-52.0); HEMOGLOBIN. 16.5 g/dL (14.0-18.0); MEAN CORPUSCULAR VOLUME 91.3 fL (80.0-94.0); MEAN PLATELET VOLUME 8.7 fl (7.4-10.4); PLATELET 497 x1000/uL (130-400); RED BLOOD CELL COUNT 5.52 mill/uL (4.7-6.1); RED CELL DISTRIBUTION WIDTH 13.8 % (11.6-14.6)
[2020-11-11 10:40] LABS: CHLORIDE 105 mEq/L (98-107)
[2020-11-11 10:44] LABS: ETHANOL BLOOD < 10 mg/dL
[2020-11-11 10:59] LABS: PLATELET ESTIMATE INCREASED
[2020-11-11 11:16] LABS: CLARITY URINE CLEAR (CLEAR); COLOR URINE YELLOW (YELLOW); KETONES URINE NEGATIVE (NEGATIVE); LEUKOCYTE ESTERASE URINE TRACE (NEGATIVE); NITRITE URINE NEGATIVE (NEGATIVE); OCCULT BLOOD URINE TRACE (NEGATIVE); PROTEIN URINE 1+ (NEGATIVE); SPECIFIC GRAVITY URINE 1.016 (1.005-1.030)
[2020-11-11] MEDS ORDERED: SODIUM CHLORIDE 0.9% 1,000 ML IV ONE (11:30)
[2020-11-11 11:44] LABS: *AMPHETAMINES SCREEN URINE NEGATIVE (NEGATIVE); *BARBITURATES SCREEN URINE NEGATIVE (NEGATIVE)
[2020-11-11 11:45] LABS: *BENZODIAZEPINES SCREEN URINE NEGATIVE (NEGATIVE); *COCAINE SCREEN URINE NEGATIVE (NEGATIVE); CANNABINOID URINE SCREEN NEGATIVE (NEGATIVE); METHADONE URINE SCREEN NEGATIVE (NEGATIVE); OPIATES URINE SCREEN NEGATIVE (NEGATIVE); PHENCYCLIDINE URINE SCREEN NEGATIVE (NEGATIVE)
[2020-11-11] MEDS ORDERED: ONDANSETRON HCL 4MG/2ML INJ IV PRN (14:30)
[2020-11-11] MEDS ORDERED: IPRATROPIUM/ALBUTEROL 0.5-3(2.5)MG/3ML NEB HHN PRN (14:30)
[2020-11-11] MEDS ORDERED: LEVETIRACETAM 500 MG in SODIUM CHLORIDE 0.9% 100 ML IV SCH (14:30)
[2020-11-11] MEDS ORDERED: DIPHENHYDRAMINE 50MG/ML VIAL IV PRN (14:30)
[2020-11-11] MEDS ORDERED: LORAZEPAM 2MG/ML CPJ IV PRN (14:30)
[2020-11-11] MEDS ORDERED: ACETAMINOPHEN 325MG TABLET PO PRN (14:30)
[2020-11-11] MEDS ORDERED: CLONIDINE 0.1MG TABLET PO PRN (14:30)
[2020-11-11 14:58] LABS: BG BASE EXCESS -6.5 mmol/L (-2.0-2.0); BG CARBOXYHEMOGLOBIN 0.3 % (0.5-1.5); BG DEOXYHEMOGLOBIN 2.5 % (0.0-5.0); BG FRACTION INSPIRED OXYGEN 21; BG METHEMOGLOBIN 0.3 % (0.0-1.5); BG OXYGEN SATURATION 97.5 % (92.0-98.5); BG OXYHEMOGLOBIN 96.9 % (94.0-97.0); BG PH 7.316 (7.350-7.450); BG PO2 103.5 mmHg (75.0-100.0); BG SAMPLE SITE RIGHT RADIAL; BG TOTAL HEMOGLOBIN 14.8 g/dL (12.0-18.0); BG VENT MODE ROOM AIR
[2020-11-11] MEDS ORDERED: LEVETIRACETAM 500MG PREMIX 100 ML IV SCH (15:00)
[2020-11-11 20:00] VITALS: BP 116/71
[2020-11-11] MEDS: LEVETIRACETAM 500MG PREMIX 100 ML IV SCH (22:41)
[2020-11-12] VITALS: BP 97/60
[2020-11-12 04:00] VITALS: BP 123/65
[2020-11-12 06:22] LABS: BASOPHILS % 0.4 % (0.0-2.0); EOSINOPHILS % 1.8 % (0.0-5.0); HEMATOCRIT. 42.5 % (42.0-52.0); HEMOGLOBIN. 14.4 g/dL (14.0-18.0); LYMPHOCYTES % 29.1 % (20.0-50.0); MEAN CORPUSCULAR HEMOGLOBIN 29.1 pg (28.0-32.0); MEAN PLATELET VOLUME 8.2 fl (7.4-10.4); MONOCYTES % 6.7 % (2.0-8.0); PLATELET 282 x1000/uL (130-400); RED BLOOD CELL COUNT 4.94 mill/uL (4.7-6.1); RED CELL DISTRIBUTION WIDTH 13.4 % (11.6-14.6)
[2020-11-12 06:36] LABS: CHLORIDE 113 mEq/L (98-107)
[2020-11-12 08:00] VITALS: BP 114/56
[2020-11-12] MEDS: LEVETIRACETAM 500MG PREMIX 100 ML IV SCH (09:31)
[2020-11-12 12:00] VITALS: BP 104/63
[2020-11-12 16:00] VITALS: BP 109/65
[2020-11-12 17:55] VITALS: BP 117/64
[2020-11-12] MEDS ORDERED: LEVETIRACETAM 500MG TABLET PO SCH (21:00)
== END 2020-11-12 19:10 | disposition home or self-care (01) | DRG 53 ==
LOC: ER 10:01 → 6WST 13:14 → ENRESERV 17:20
PROVIDERS: ADMIT Internal Medicine; ATTEND Internal Medicine
DX: G40.909 Epilepsy, unspecified, not intractable, without status epilepticus (principal); R65.10 Systemic inflammatory response syndrome (SIRS) of non-infectious origin without acute organ dysfunction; D72.829 Elevated white blood cell count, unspecified; R73.9 Hyperglycemia, unspecified; Z79.899 Other long term (current) drug therapy; Z91.012 Allergy to eggs; F84.0 Autistic disorder
CPT/HCPCS: 36415; 36600; 71045; 80053; 80305; 80320; 81003; 82375; 82805; 82962; 83036; 84145; 85025; 93005; 93970; 99285; J1953; J7030; G0480

== ENCOUNTER 2020-11-23 16:37 | Emergency (ER) | payer MEDICAID ==
[~2020-11-23] VITALS: Ht 177.8 cm; Wt 100.0 kg
[2020-11-23] MEDS ORDERED: ONDANSETRON HCL 4MG/2ML INJ IV ONE (17:15)
[2020-11-23 17:30] LABS: BASOPHILS % 0.3 % (0.0-2.0); EOSINOPHILS % 0.9 % (0.0-5.0); HEMATOCRIT. 48.8 % (42.0-52.0); HEMOGLOBIN. 16.4 g/dL (14.0-18.0); LYMPHOCYTES % 26.4 % (20.0-50.0); MEAN CORPUSCULAR HEMOGLOBIN 29.3 pg (28.0-32.0); MEAN CORPUSCULAR VOLUME 87.6 fL (80.0-94.0); MEAN PLATELET VOLUME 8.4 fl (7.4-10.4); MONOCYTES % 2.9 % (2.0-8.0); NEUTROPHILS % 69.5 % (40.0-76.0); PLATELET 349 x1000/uL (130-400); RED BLOOD CELL COUNT 5.58 mill/uL (4.7-6.1); RED CELL DISTRIBUTION WIDTH 13.5 % (11.6-14.6)
[2020-11-23 17:36] LABS: CHLORIDE 112 mEq/L (98-107)
[2020-11-23 17:41] LABS: PHOSPHORUS 3.2 mg/dL (2.5-4.9)
[2020-11-23 18:18] LABS: CLARITY URINE CLEAR (CLEAR); COLOR URINE YELLOW (YELLOW); KETONES URINE NEGATIVE (NEGATIVE); LEUKOCYTE ESTERASE URINE NEGATIVE (NEGATIVE); NITRITE URINE NEGATIVE (NEGATIVE); OCCULT BLOOD URINE TRACE (NEGATIVE); PROTEIN URINE 2+ (NEGATIVE); UROBILINOGEN URINE 0.2 E.U./dL (0.2-1.0)
[2020-11-23 18:36] LABS: *AMPHETAMINES SCREEN URINE NEGATIVE (NEGATIVE); *BARBITURATES SCREEN URINE NEGATIVE (NEGATIVE); *BENZODIAZEPINES SCREEN URINE PRESUMTIVE POSITIVE (NEGATIVE); *COCAINE SCREEN URINE NEGATIVE (NEGATIVE); METHADONE URINE SCREEN NEGATIVE (NEGATIVE)
[2020-11-23 18:37] LABS: CANNABINOID URINE SCREEN NEGATIVE (NEGATIVE); OPIATES URINE SCREEN NEGATIVE (NEGATIVE); PHENCYCLIDINE URINE SCREEN NEGATIVE (NEGATIVE)
[2020-11-23 19:40] VITALS: BP 137/78
== END 2020-11-23 19:57 | disposition home or self-care (01) ==
LOC: ER 16:37
DX: G40.909 Epilepsy, unspecified, not intractable, without status epilepticus (principal); I49.9 Cardiac arrhythmia, unspecified; Z91.012 Allergy to eggs; Z98.890 Other specified postprocedural states
CPT/HCPCS: 36415; 80053; 80305; 81003; 83735; 84100; 85025; 93005; 96374; 99284; J2405; Z7610

== ENCOUNTER 2020-11-25 21:38 | Emergency (ER) | payer MEDICAID ==
[~2020-11-25] VITALS: Ht 177.8 cm; Wt 104.0 kg
[2020-11-25] MEDS ORDERED: SODIUM CHLORIDE 0.9% 1,000 ML IV ONE (22:00)
[2020-11-25] MEDS ORDERED: LEVETIRACETAM 500MG PREMIX 100 ML IV ONE (22:00)
[2020-11-25] MEDS ORDERED: DEXT 5%/0.9% NACL 1,000 ML IV ONE (22:15)
[2020-11-25 22:44] LABS: BASOPHILS % 0.6 % (0.0-2.0); EOSINOPHILS % 2.6 % (0.0-5.0); HEMATOCRIT. 45.1 % (42.0-52.0); HEMOGLOBIN. 15.5 g/dL (14.0-18.0); MEAN CORPUSCULAR HEMOGLOBIN 29.6 pg (28.0-32.0); MEAN CORPUSCULAR VOLUME 86.1 fL (80.0-94.0); MEAN PLATELET VOLUME 8.6 fl (7.4-10.4); NEUTROPHILS % 76.8 % (40.0-76.0); PLATELET 320 x1000/uL (130-400); RED BLOOD CELL COUNT 5.23 mill/uL (4.7-6.1); RED CELL DISTRIBUTION WIDTH 13.5 % (11.6-14.6)
[2020-11-25 22:55] LABS: CHLORIDE 113 mEq/L (98-107)
[2020-11-25 23:00] LABS: ETHANOL BLOOD < 10 mg/dL
[2020-11-25 23:05] LABS: CREATINE KINASE 60 IU/L (39-308)
[2020-11-26 00:02] LABS: CLARITY URINE CLEAR (CLEAR); COLOR URINE YELLOW (YELLOW); KETONES URINE TRACE (NEGATIVE); LEUKOCYTE ESTERASE URINE TRACE (NEGATIVE); NITRITE URINE NEGATIVE (NEGATIVE); OCCULT BLOOD URINE TRACE (NEGATIVE); PROTEIN URINE 1+ (NEGATIVE); SPECIFIC GRAVITY URINE 1.017 (1.005-1.030); UROBILINOGEN URINE 0.2 E.U./dL (0.2-1.0)
[2020-11-26 00:12] LABS: *AMPHETAMINES SCREEN URINE NEGATIVE (NEGATIVE); *BARBITURATES SCREEN URINE NEGATIVE (NEGATIVE); *BENZODIAZEPINES SCREEN URINE PRESUMTIVE POSITIVE (NEGATIVE); *COCAINE SCREEN URINE NEGATIVE (NEGATIVE)
[2020-11-26 00:13] LABS: CANNABINOID URINE SCREEN NEGATIVE (NEGATIVE); METHADONE URINE SCREEN NEGATIVE (NEGATIVE); OPIATES URINE SCREEN NEGATIVE (NEGATIVE); PHENCYCLIDINE URINE SCREEN NEGATIVE (NEGATIVE)
[2020-11-26] MEDS ORDERED: LORAZEPAM 2MG/ML CPJ IV ONE (02:30)
[2020-11-26 02:49] VITALS: BP 163/83
== END 2020-11-26 02:51 | disposition designated cancer center or children's hospital (05) ==
LOC: ER 21:38
DX: R56.9 Unspecified convulsions (principal)
CPT/HCPCS: 36415; 71045; 80053; 80305; 80320; 81003; 82140; 82550; 83605; 84443; 85025; 93005; 96365; 96375; 99285; J1953; J2060; J7030; J7042; G0480

== ENCOUNTER 2021-02-03 02:28 | Emergency (ER) | payer MEDICAID ==
[~2021-02-03] VITALS: Ht 165.1 cm; Wt 145.0 kg
[~2021-02-03 02:28] MED LIST changes: +LAM1 PO; -LAMO100T16 PO
[2021-02-03 07:27] VITALS: BP 114/65
== END 2021-02-03 07:25 | disposition home or self-care (01) ==
LOC: ER 02:28
DX: R56.9 Unspecified convulsions (principal); Z91.012 Allergy to eggs
CPT/HCPCS: 82962; 93005; 99283

== ENCOUNTER 2021-03-24 06:09 | Inpatient (IN) | payer MEDICAID ==
[~2021-03-24] VITALS: Ht 177.8 cm; Wt 66.4 kg
[2021-03-24] MEDS ORDERED: ACETAMINOPHEN 650MG SUPP PR STA (06:19)
[2021-03-24] MEDS ORDERED: LEVETIRACETAM 1000MG PREMIX 100 ML IV ONE (06:30)
[2021-03-24] MEDS ORDERED: SODIUM CHLORIDE 0.9% 1,000 ML IV ONE ×2 (06:30→07:30)
[2021-03-24 07:12] LABS: BASOPHILS % 0.7 % (0.0-2.0); EOSINOPHILS % 0.7 % (0.0-5.0); HEMATOCRIT. 50.1 % (42.0-52.0); HEMOGLOBIN. 16.5 g/dL (14.0-18.0); LYMPHOCYTES % 40.8 % (20.0-50.0); MEAN CORPUSCULAR HEMOGLOBIN 29.1 pg (28.0-32.0); MEAN CORPUSCULAR VOLUME 88.7 fL (80.0-94.0); MEAN PLATELET VOLUME 8.9 fl (7.4-10.4); MONOCYTES % 5.6 % (2.0-8.0); NEUTROPHILS % 52.2 % (40.0-76.0); PLATELET 480 x1000/uL (130-400); RED BLOOD CELL COUNT 5.65 mill/uL (4.7-6.1); RED CELL DISTRIBUTION WIDTH 13.9 % (11.6-14.6)
[2021-03-24 07:24] LABS: PROTHROMBIN TIME 11.1 sec (9.6-11.0)
[2021-03-24 07:27] LABS: CHLORIDE 110 mEq/L (98-107)
[2021-03-24 07:31] LABS: ETHANOL BLOOD < 10 mg/dL
[2021-03-24] MEDS ORDERED: PIPERACILLIN/TAZ 3.375G PREMIX 50 ML IV ONE (07:45)
[2021-03-24] MEDS ORDERED: ACETAMINOPHEN 325MG TABLET PO ONE (07:45)
[2021-03-24] MEDS ORDERED: VANCOMYCIN 1 G PREMIX 200 ML IV ONE (07:45)
[2021-03-24 08:56] LABS: CLARITY URINE CLEAR (CLEAR); COLOR URINE YELLOW (YELLOW); KETONES URINE NEGATIVE (NEGATIVE); LEUKOCYTE ESTERASE URINE NEGATIVE (NEGATIVE); NITRITE URINE NEGATIVE (NEGATIVE); OCCULT BLOOD URINE NEGATIVE (NEGATIVE); PROTEIN URINE 1+ (NEGATIVE); SPECIFIC GRAVITY URINE 1.019 (1.005-1.030)
[2021-03-24 09:07] LABS: *AMPHETAMINES SCREEN URINE NEGATIVE (NEGATIVE); *BARBITURATES SCREEN URINE NEGATIVE (NEGATIVE); *BENZODIAZEPINES SCREEN URINE PRESUMTIVE POSITIVE (NEGATIVE); *COCAINE SCREEN URINE NEGATIVE (NEGATIVE); CANNABINOID URINE SCREEN NEGATIVE (NEGATIVE); PHENCYCLIDINE URINE SCREEN NEGATIVE (NEGATIVE)
[2021-03-24 09:08] LABS: METHADONE URINE SCREEN NEGATIVE (NEGATIVE); OPIATES URINE SCREEN NEGATIVE (NEGATIVE)
[2021-03-24 11:50] VITALS: BP 106/58
[2021-03-24 12:09] VITALS: BP 106/58
[2021-03-24] MEDS ORDERED: LIDOCAINE HCL/PF 1% 2ML VIAL ONE (13:14)
[2021-03-24] MEDS ORDERED: LORAZEPAM 0.5MG TABLET PO PRN (13:15)
[2021-03-24] MEDS ORDERED: DOCUSATE SODIUM 100MG CAPSULE PO PRN (13:15)
[2021-03-24] MEDS ORDERED: IPRATROPIUM/ALBUTEROL 0.5-3(2.5)MG/3ML NEB HHN PRN (13:15)
[2021-03-24] MEDS ORDERED: HYDROCODONE/ACETAMINOPHEN 5/325MG TABLET PO PRN (13:15)
[2021-03-24] MEDS ORDERED: ACETAMINOPHEN 325MG TABLET PO PRN ×2 (13:15)
[2021-03-24] MEDS ORDERED: ONDANSETRON HCL 4MG/2ML INJ IV PRN (13:15)
[2021-03-24] MEDS ORDERED: CLONIDINE 0.1MG TABLET PO PRN (13:15)
[2021-03-24] MEDS ORDERED: NALOXONE HCL 0.4MG/ML VIAL IV PRN (13:30)
[2021-03-24 13:49] LABS: BG BASE EXCESS -6.5 mmol/L (-2.0-2.0); BG CARBOXYHEMOGLOBIN 0.3 % (0.5-1.5); BG DEOXYHEMOGLOBIN 2.6 % (0.0-5.0); BG METHEMOGLOBIN 0.1 % (0.0-1.5); BG OXYGEN SATURATION 97.4 % (92.0-98.5); BG PH 7.354 (7.350-7.450); BG PO2 100.1 mmHg (75.0-100.0); BG SAMPLE SITE RIGHT BRACHIAL; BG TOTAL HEMOGLOBIN 14.8 g/dL (12.0-18.0); BG VENT MODE ROOM AIR
[2021-03-24] MEDS ORDERED: INFLUENZA VACCINE 05/PF 0.5 ML SYRINGE IM ONE (15:30)
[2021-03-24 16:01] VITALS: BP 100/60
[2021-03-24] MEDS: LAMOTRIGINE 100MG TABLET PO SCH (19:36)
[2021-03-24] MEDS: LEVETIRACETAM 500MG TABLET PO SCH (19:36)
[2021-03-24 20:00] VITALS: BP 108/49
[2021-03-24] MEDS ORDERED: ZONISAMIDE 100MG CAPSULE PO SCH (21:00)
[2021-03-24] MEDS ORDERED: LORAZEPAM 2MG/ML CPJ IV PRN (21:45)
[2021-03-25] VITALS: BP 118/73
[2021-03-25 04:00] VITALS: BP 109/56
[2021-03-25 05:36] LABS: BASOPHILS % 0.3 % (0.0-2.0); EOSINOPHILS % 0.5 % (0.0-5.0); HEMATOCRIT. 44.3 % (42.0-52.0); LYMPHOCYTES % 19.4 % (20.0-50.0); MEAN CORPUSCULAR HEMOGLOBIN 29.1 pg (28.0-32.0); MEAN CORPUSCULAR VOLUME 85.7 fL (80.0-94.0); MEAN PLATELET VOLUME 8.4 fl (7.4-10.4); MONOCYTES % 8.4 % (2.0-8.0); NEUTROPHILS % 71.4 % (40.0-76.0); PLATELET 244 x1000/uL (130-400); RED BLOOD CELL COUNT 5.17 mill/uL (4.7-6.1); RED CELL DISTRIBUTION WIDTH 13.7 % (11.6-14.6)
[2021-03-25 08:00] VITALS: BP 104/55
[2021-03-25] MEDS: LAMOTRIGINE 100MG TABLET PO SCH (09:03)
[2021-03-25] MEDS: LEVETIRACETAM 500MG TABLET PO SCH (09:03)
[2021-03-25 12:00] VITALS: BP 109/61
[2021-03-25] MEDS ORDERED: SODIUM CHLORIDE 0.9% 1,000 ML IV ONE (13:30)
[2021-03-25 18:26] VITALS: BP 120/60
[2021-03-28 10:06] LABS: LEVETIRACETAM / KEPPRA 33.5 ug/mL (10.0-40.0)
== END 2021-03-25 19:05 | disposition home or self-care (01) | DRG 53 ==
LOC: ER 06:22 → 6WST 10:21 → ENRESERV 11:22 → CANRESERV 11:22 → ENRESERV 11:28
PROVIDERS: ADMIT Internal Medicine; ATTEND Internal Medicine
PROC: 4A10X4Z Monitoring of Central Nervous Electrical Activity, External Approach (ICD-10-PCS; principal; 2021-03-25)
DX: G40.419 Other generalized epilepsy and epileptic syndromes, intractable, without status epilepticus (principal); E87.2 Acidosis; E87.4 Mixed disorder of acid-base balance; F84.0 Autistic disorder; Z91.012 Allergy to eggs; Z79.899 Other long term (current) drug therapy; Z91.19 Patient's noncompliance with other medical treatment and regimen; D72.829 Elevated white blood cell count, unspecified; I45.81 Long QT syndrome; R50.9 Fever, unspecified
CPT/HCPCS: 36415; 36600; 71045; 80048; 80053; 80305; 80320; 81003; 82375; 82542; 82805; 82962; 83605; 84145; 84484; 85025; 93005; 95816; 99291; C1893; J1953; J2543; J3370; J3490; J7030; G0480

== ENCOUNTER 2021-03-28 02:00 | Emergency (ER) | payer MEDICAID ==
[~2021-03-28] VITALS: Ht 170.2 cm; Wt 119.0 kg
[2021-03-28] MEDS ORDERED: ONDANSETRON HCL 4MG/2ML INJ IV STA (03:44)
[2021-03-28] MEDS ORDERED: LEVETIRACETAM 500MG PREMIX 100 ML IV ONE (03:45)
[2021-03-28] MEDS ORDERED: SODIUM CHLORIDE 0.9% 1,000 ML IV ONE (03:45)
[2021-03-28 04:36] LABS: BASOPHILS % 0.4 % (0.0-2.0); EOSINOPHILS % 0.1 % (0.0-5.0); HEMATOCRIT. 41.5 % (42.0-52.0); HEMOGLOBIN. 14.7 g/dL (14.0-18.0); LYMPHOCYTES % 8.9 % (20.0-50.0); MEAN CORPUSCULAR HEMOGLOBIN 29.8 pg (28.0-32.0); MEAN CORPUSCULAR VOLUME 84.1 fL (80.0-94.0); MEAN PLATELET VOLUME 8.4 fl (7.4-10.4); MONOCYTES % 6.3 % (2.0-8.0); NEUTROPHILS % 84.3 % (40.0-76.0); PLATELET 290 x1000/uL (130-400); RED BLOOD CELL COUNT 4.93 mill/uL (4.7-6.1); RED CELL DISTRIBUTION WIDTH 13.6 % (11.6-14.6)
[2021-03-28 04:58] LABS: CHLORIDE 115 mEq/L (98-107)
[2021-03-28] MEDS ORDERED: LEVE1000 MT (05:45)
[2021-03-28 07:57] VITALS: BP 128/78
== END 2021-03-28 07:58 | disposition home or self-care (01) ==
LOC: ER 02:00
DX: G40.909 Epilepsy, unspecified, not intractable, without status epilepticus (principal); Z91.012 Allergy to eggs
CPT/HCPCS: 36415; 80053; 85025; 93005; 96365; 96375; 99291; J1953; J2405; J7030

== ENCOUNTER 2021-03-30 00:41 | Emergency (ER) | payer MEDICAID ==
[~2021-03-30] VITALS: Ht 170.2 cm; Wt 100.0 kg
[~2021-03-30 00:41] MED LIST changes: +LEVE1000 MT
[2021-03-30] MEDS ORDERED: ONDANSETRON HCL 4MG/2ML INJ IV STA (01:00)
[2021-03-30] MEDS ORDERED: LEVETIRACETAM 1000MG PREMIX 100 ML IV ONE (01:00)
[2021-03-30] MEDS ORDERED: SODIUM CHLORIDE 0.9% 1,000 ML IV ONE (01:00)
[2021-03-30 01:16] LABS: BASOPHILS % 0.5 % (0.0-2.0); EOSINOPHILS % 0.9 % (0.0-5.0); HEMATOCRIT. 47.8 % (42.0-52.0); HEMOGLOBIN. 15.9 g/dL (14.0-18.0); LYMPHOCYTES % 45.2 % (20.0-50.0); MEAN CORPUSCULAR HEMOGLOBIN 29.4 pg (28.0-32.0); MEAN CORPUSCULAR VOLUME 88.4 fL (80.0-94.0); MEAN PLATELET VOLUME 8.2 fl (7.4-10.4); NEUTROPHILS % 48.4 % (40.0-76.0); PLATELET 407 x1000/uL (130-400); RED BLOOD CELL COUNT 5.41 mill/uL (4.7-6.1); RED CELL DISTRIBUTION WIDTH 13.5 % (11.6-14.6)
[2021-03-30 01:22] LABS: CHLORIDE 108 mEq/L (98-107)
[2021-03-30 03:26] LABS: CHLORIDE 113 mEq/L (98-107)
[2021-03-30 04:01] VITALS: BP 130/67
== END 2021-03-30 04:05 | disposition home or self-care (01) ==
LOC: ER 00:50
DX: R56.9 Unspecified convulsions (principal); E87.2 Acidosis; Z91.012 Allergy to eggs
CPT/HCPCS: 36415; 71045; 80048; 80053; 85025; 93005; 96365; 96366; 96375; 99285; J1953; J2405; J7030

== ENCOUNTER 2021-05-02 17:16 | Inpatient (IN) | payer MEDICAID ==
[~2021-05-02] VITALS: Ht 172.7 cm; Wt 112.1 kg
[2021-05-02 18:21] LABS: BASOPHILS % 0.8 % (0.0-2.0); EOSINOPHILS % 0.5 % (0.0-5.0); HEMATOCRIT. 47.5 % (42.0-52.0); HEMOGLOBIN. 15.9 g/dL (14.0-18.0); MEAN CORPUSCULAR HEMOGLOBIN 29.5 pg (28.0-32.0); MEAN CORPUSCULAR VOLUME 88.1 fL (80.0-94.0); MEAN PLATELET VOLUME 8.5 fl (7.4-10.4); MONOCYTES % 3.9 % (2.0-8.0); NEUTROPHILS % 73.8 % (40.0-76.0); PLATELET 305 x1000/uL (130-400); RED BLOOD CELL COUNT 5.39 mill/uL (4.7-6.1); RED CELL DISTRIBUTION WIDTH 13.8 % (11.6-14.6)
[2021-05-02 18:28] LABS: CHLORIDE 115 mEq/L (98-107)
[2021-05-02] MEDS ORDERED: LORAZEPAM 2MG/ML CPJ IV ONE (20:30)
[2021-05-03] VITALS (7 sets, daily range): BP systolic 99–149; BP diastolic 59–79
[2021-05-03] MEDS ORDERED: ACETAMINOPHEN 325MG TABLET PO PRN ×2 (01:15→12:45)
[2021-05-03] MEDS ORDERED: TOPAMAX (02:10)
[2021-05-03] MEDS: LEVETIRACETAM 500MG/5ML CUP PO SCH ×3 (02:53→20:39)
[2021-05-03] MEDS ORDERED: ZONISAMIDE 100MG/10ML ORAL SYR PO SCH (09:00)
[2021-05-03] MEDS: LAMOTRIGINE 100MG TABLET PO SCH ×2 (09:10→20:39)
[2021-05-03] MEDS ORDERED: CLONIDINE 0.1MG TABLET PO PRN (12:45)
[2021-05-03] MEDS ORDERED: ZONISAMIDE 100MG CAPSULE PO SCH (12:45)
[2021-05-03] MEDS ORDERED: LORAZEPAM 2MG/ML CPJ IV PRN (12:45)
[2021-05-03] MEDS ORDERED: HYDROCODONE/ACETAMINOPHEN 5/325MG TABLET PO PRN (12:45)
[2021-05-03] MEDS ORDERED: DOCUSATE SODIUM 100MG CAPSULE PO PRN (12:45)
[2021-05-03] MEDS ORDERED: LORAZEPAM 0.5MG TABLET PO PRN (12:45)
[2021-05-03] MEDS ORDERED: IPRATROPIUM/ALBUTEROL 0.5-3(2.5)MG/3ML NEB HHN PRN (12:45)
[2021-05-03] MEDS ORDERED: ONDANSETRON HCL 4MG/2ML INJ IV PRN (12:45)
[2021-05-03] MEDS ORDERED: NALOXONE HCL 0.4MG/ML VIAL IV PRN (13:00)
[2021-05-03] MEDS: ZONISAMIDE 100MG CAPSULE PO SCH (20:39)
[2021-05-03] MEDS ORDERED: LAMOTRIGINE 100MG TABLET PO SCH (21:00)
[2021-05-04] VITALS: BP 120/64
[2021-05-04 04:00] VITALS: BP 129/79
[2021-05-04 08:00] VITALS: BP 115/76
[2021-05-04] MEDS: LAMOTRIGINE 100MG TABLET PO SCH ×2 (09:32→20:08)
[2021-05-04] MEDS: LEVETIRACETAM 500MG/5ML CUP PO SCH ×2 (09:32→20:08)
[2021-05-04 12:00] VITALS: BP 142/76
[2021-05-04 16:00] VITALS: BP 102/64
[2021-05-04 20:00] VITALS: BP 103/55
[2021-05-04] MEDS: ZONISAMIDE 100MG CAPSULE PO SCH (20:08)
[2021-05-05] VITALS: BP 120/74
[2021-05-05 04:00] VITALS: BP_SYST 117; BP_SYST 119; BP_DIAS 56
[2021-05-05 06:24] LABS: BASOPHILS % 0.3 % (0.0-2.0); CHLORIDE 109 mEq/L (98-107); EOSINOPHILS % 1.3 % (0.0-5.0); HEMATOCRIT. 42.7 % (42.0-52.0); HEMOGLOBIN. 14.8 g/dL (14.0-18.0); LYMPHOCYTES % 30.3 % (20.0-50.0); MEAN CORPUSCULAR HEMOGLOBIN 29.5 pg (28.0-32.0); MEAN CORPUSCULAR VOLUME 85.2 fL (80.0-94.0); MEAN PLATELET VOLUME 8.6 fl (7.4-10.4); MONOCYTES % 5.8 % (2.0-8.0); NEUTROPHILS % 62.3 % (40.0-76.0); PLATELET 287 x1000/uL (130-400); RED BLOOD CELL COUNT 5.01 mill/uL (4.7-6.1); RED CELL DISTRIBUTION WIDTH 13.5 % (11.6-14.6)
[2021-05-05 08:00] VITALS: BP 115/61
[2021-05-05] MEDS: LAMOTRIGINE 100MG TABLET PO SCH (09:08)
[2021-05-05] MEDS: LEVETIRACETAM 500MG/5ML CUP PO SCH (09:08)
[2021-05-05 12:00] VITALS: BP 119/65
[2021-05-05 16:44] VITALS: BP 114/71
== END 2021-05-05 17:30 | disposition home or self-care (01) | DRG 53 ==
LOC: ER 17:16 → 7EST 22:23 → EDBEDREQ 22:31 → EDBEDREQTM 22:31 → ENRESERV 23:36
PROVIDERS: ADMIT Internal Medicine; ATTEND Internal Medicine
PROC: 4A10X4Z Monitoring of Central Nervous Electrical Activity, External Approach (ICD-10-PCS; principal; 2021-05-04)
DX: G40.909 Epilepsy, unspecified, not intractable, without status epilepticus (principal); E87.3 Alkalosis; F84.0 Autistic disorder; E66.01 Morbid (severe) obesity due to excess calories; R06.82 Tachypnea, not elsewhere classified; Z79.899 Other long term (current) drug therapy; Z82.49 Family history of ischemic heart disease and other diseases of the circulatory system; Z68.37 Body mass index [BMI] 37.0-37.9, adult; Z91.012 Allergy to eggs; Z88.8 Allergy status to other drugs, medicaments and biological substances
CPT/HCPCS: 36415; 80048; 80053; 82542; 85025; 95816; 99285; J2060

== ENCOUNTER 2021-05-09 00:29 | Emergency (ER) | payer MEDICAID ==
[~2021-05-09] VITALS: Ht 182.9 cm; Wt 120.0 kg
[~2021-05-09 00:29] MED LIST changes: +TOPAMAX
[2021-05-09 10:00] VITALS: BP 144/83
== END 2021-05-09 10:15 | disposition home or self-care (01) ==
LOC: ER 00:29
DX: G40.909 Epilepsy, unspecified, not intractable, without status epilepticus (principal); F84.0 Autistic disorder; Z91.012 Allergy to eggs
CPT/HCPCS: 82962; 99285

== ENCOUNTER 2021-05-16 14:46 | Emergency (ER) | payer MEDICAID ==
[~2021-05-16] VITALS: Ht 172.7 cm; Wt 100.0 kg
[2021-05-16] MEDS ORDERED: SODIUM CHLORIDE 0.9% 1,000 ML IV ONE (15:15)
[2021-05-16] MEDS ORDERED: LEVETIRACETAM 1000MG PREMIX 100 ML IV ONE (15:15)
[2021-05-16 15:59] LABS: BASOPHILS % 0.5 % (0.0-2.0); EOSINOPHILS % 0.5 % (0.0-5.0); HEMATOCRIT. 43.2 % (42.0-52.0); HEMOGLOBIN. 14.9 g/dL (14.0-18.0); LYMPHOCYTES % 18.3 % (20.0-50.0); MEAN CORPUSCULAR HEMOGLOBIN 29.7 pg (28.0-32.0); MEAN CORPUSCULAR VOLUME 86.1 fL (80.0-94.0); MEAN PLATELET VOLUME 8.3 fl (7.4-10.4); NEUTROPHILS % 74.7 % (40.0-76.0); PLATELET 326 x1000/uL (130-400); RED BLOOD CELL COUNT 5.01 mill/uL (4.7-6.1); RED CELL DISTRIBUTION WIDTH 13.8 % (11.6-14.6)
[2021-05-16 16:04] LABS: CHLORIDE 113 mEq/L (98-107)
[2021-05-16 16:09] LABS: ETHANOL BLOOD < 10 mg/dL
[2021-05-16 19:40] VITALS: BP 124/91
== END 2021-05-16 20:07 | disposition home or self-care (01) ==
LOC: ER 14:46
DX: G40.909 Epilepsy, unspecified, not intractable, without status epilepticus (principal); F84.0 Autistic disorder; Z91.012 Allergy to eggs
CPT/HCPCS: 36415; 80053; 80320; 85025; 96374; 99285; J1953; J7030; G0480

== ENCOUNTER 2021-06-07 15:00 | Inpatient (IN) | payer MEDICAID ==
[~2021-06-07] VITALS: Ht 172.7 cm; Wt 113.9 kg
[2021-06-07] MEDS ORDERED: SODIUM CHLORIDE 0.9% 1,000 ML IV ONE (15:45)
[2021-06-07] MEDS ORDERED: LEVETIRACETAM 1000MG PREMIX 100 ML IV ONE (15:45)
[2021-06-07 16:27] LABS: BASOPHILS % 0.5 % (0.0-2.0); EOSINOPHILS % 0.5 % (0.0-5.0); HEMATOCRIT. 49.8 % (42.0-52.0); HEMOGLOBIN. 15.9 g/dL (14.0-18.0); LYMPHOCYTES % 13.4 % (20.0-50.0); MEAN CORPUSCULAR HEMOGLOBIN 28.3 pg (28.0-32.0); MEAN CORPUSCULAR VOLUME 88.5 fL (80.0-94.0); MEAN PLATELET VOLUME 8.7 fl (7.4-10.4); MONOCYTES % 2.5 % (2.0-8.0); NEUTROPHILS % 83.1 % (40.0-76.0); PLATELET 382 x1000/uL (130-400); RED BLOOD CELL COUNT 5.62 mill/uL (4.7-6.1); RED CELL DISTRIBUTION WIDTH 13.5 % (11.6-14.6)
[2021-06-07 16:33] LABS: CHLORIDE 113 mEq/L (98-107)
[2021-06-07 16:40] LABS: ETHANOL BLOOD < 10 mg/dL
[2021-06-07 18:46] LABS: CLARITY URINE CLOUDY (CLEAR); COLOR URINE YELLOW (YELLOW); KETONES URINE NEGATIVE (NEGATIVE); LEUKOCYTE ESTERASE URINE NEGATIVE (NEGATIVE); NITRITE URINE NEGATIVE (NEGATIVE); OCCULT BLOOD URINE TRACE (NEGATIVE); PROTEIN URINE 2+ (NEGATIVE); SPECIFIC GRAVITY URINE 1.019 (1.005-1.030)
[2021-06-07 19:13] LABS: *AMPHETAMINES SCREEN URINE NEGATIVE (NEGATIVE); *BARBITURATES SCREEN URINE NEGATIVE (NEGATIVE); *BENZODIAZEPINES SCREEN URINE PRESUMTIVE POSITIVE (NEGATIVE); *COCAINE SCREEN URINE NEGATIVE (NEGATIVE); METHADONE URINE SCREEN NEGATIVE (NEGATIVE); OPIATES URINE SCREEN NEGATIVE (NEGATIVE); PHENCYCLIDINE URINE SCREEN NEGATIVE (NEGATIVE)
[2021-06-07 19:14] LABS: CANNABINOID URINE SCREEN NEGATIVE (NEGATIVE)
[2021-06-07] MEDS ORDERED: CEFTRIAXONE 1 G PREMIX 50 ML IV NR (21:00)
[2021-06-07] MEDS ORDERED: GUAIFENESIN 200MG/10ML SUGAR FREE UDC PO PRN (22:00)
[2021-06-07] MEDS ORDERED: LORAZEPAM 2MG/ML CPJ IV PRN (22:00)
[2021-06-07] MEDS ORDERED: MORPHINE SULFATE 2 MG/ML CPJ (NOT FOR IM USE) IV PRN (22:00)
[2021-06-07] MEDS ORDERED: DIPHENHYDRAMINE 50MG/ML VIAL IV PRN (22:00)
[2021-06-07] MEDS: SODIUM CHLORIDE 0.9% INJ 3ML FLUSH IVF SCH (22:00)
[2021-06-07] MEDS ORDERED: IPRATROPIUM/ALBUTEROL 0.5-3(2.5)MG/3ML NEB HHN PRN (22:00)
[2021-06-07] MEDS ORDERED: AZITHROMYCIN 500MG/250ML 250 ML IV NR (22:00)
[2021-06-07] MEDS ORDERED: ACETAMINOPHEN 325MG TABLET PO PRN (22:00)
[2021-06-07] MEDS ORDERED: DOCUSATE SODIUM 100MG CAPSULE PO PRN (22:00)
[2021-06-07] MEDS ORDERED: CLONIDINE 0.1MG TABLET PO PRN (22:00)
[2021-06-07] MEDS ORDERED: MAGNESIUM/ALUMINUM HYDROXIDE/SIMETHICONE 30ML UDC PO PRN (22:00)
[2021-06-07] MEDS ORDERED: HYDROCODONE/ACETAMINOPHEN 5/325MG TABLET PO PRN (22:00)
[2021-06-07] MEDS ORDERED: ONDANSETRON HCL 4MG/2ML INJ IV PRN (22:00)
[2021-06-07] MEDS ORDERED: HYDRALAZINE 20MG/ML VIAL IV PRN (22:00)
[2021-06-07] MEDS: DEXT 5%/0.45% NACL 1000ML 1,000 ML IV SCH (23:47)
[2021-06-07] MEDS: LEVOFLOXACIN 500MG PREMIX 100 ML IV SCH (23:47)
[2021-06-07] MEDS: ENOXAPARIN 30MG/0.3ML SYR SUBCUT SCH (23:48)
[2021-06-08] VITALS (9 sets, daily range): BP systolic 106–147; BP diastolic 56–95
[2021-06-08 05:15] LABS: BASOPHILS % 0.2 % (0.0-2.0); EOSINOPHILS % 0.2 % (0.0-5.0); HEMATOCRIT. 41.2 % (42.0-52.0); HEMOGLOBIN. 14.2 g/dL (14.0-18.0); LYMPHOCYTES % 18.4 % (20.0-50.0); MEAN CORPUSCULAR HEMOGLOBIN 29.2 pg (28.0-32.0); MEAN CORPUSCULAR VOLUME 84.7 fL (80.0-94.0); MEAN PLATELET VOLUME 8.3 fl (7.4-10.4); MONOCYTES % 6.8 % (2.0-8.0); NEUTROPHILS % 74.4 % (40.0-76.0); PLATELET 308 x1000/uL (130-400); RED BLOOD CELL COUNT 4.86 mill/uL (4.7-6.1)
[2021-06-08 05:19] LABS: CHLORIDE 113 mEq/L (98-107)
[2021-06-08] MEDS: SODIUM CHLORIDE 0.9% INJ 3ML FLUSH IVF SCH ×3 (06:38→21:18)
[2021-06-08] MEDS ORDERED: INFLUENZA VACCINE 05/PF 0.5 ML SYRINGE IM ONE (11:45)
[2021-06-08] MEDS: ENOXAPARIN 30MG/0.3ML SYR SUBCUT SCH ×2 (12:13→21:18)
[2021-06-08] MEDS ORDERED: *PATIENT'S OWN MEDICATION STORAGE XX SCH (12:15)
[2021-06-08] MEDS: DEXT 5%/0.45% NACL 1000ML 1,000 ML IV SCH (12:17)
[2021-06-08] MEDS ORDERED: POTASSIUM CHLORIDE 20MEQ/PACKET PO NR (13:15)
[2021-06-08] MEDS ORDERED: NALOXONE HCL 0.4MG/ML VIAL IV PRN (13:30)
[2021-06-08] MEDS: ZONISAMIDE 100MG CAPSULE PO SCH (16:18)
[2021-06-08] MEDS: LAMOTRIGINE 100MG TABLET PO SCH (21:17)
[2021-06-08] MEDS: LEVETIRACETAM 500MG TABLET PO SCH (21:17)
[2021-06-08] MEDS: LEVOFLOXACIN 500MG PREMIX 100 ML IV SCH (21:58)
[2021-06-09] MEDS: DEXT 5%/0.45% NACL 1000ML 1,000 ML IV SCH ×2 (00:13→14:20)
[2021-06-09 04:00] VITALS: BP 133/64
[2021-06-09 06:46] LABS: CHLORIDE 112 mEq/L (98-107)
[2021-06-09] MEDS: SODIUM CHLORIDE 0.9% INJ 3ML FLUSH IVF SCH ×2 (06:46→14:20)
[2021-06-09 07:07] LABS: BASOPHILS % 0.5 % (0.0-2.0); EOSINOPHILS % 0.5 % (0.0-5.0); HEMATOCRIT. 40.6 % (42.0-52.0); HEMOGLOBIN. 13.9 g/dL (14.0-18.0); LYMPHOCYTES % 31.3 % (20.0-50.0); MEAN CORPUSCULAR HEMOGLOBIN 29.4 pg (28.0-32.0); MEAN CORPUSCULAR VOLUME 86.2 fL (80.0-94.0); MEAN PLATELET VOLUME 8.9 fl (7.4-10.4); MONOCYTES % 7.5 % (2.0-8.0); NEUTROPHILS % 60.2 % (40.0-76.0); PLATELET 325 x1000/uL (130-400); RED BLOOD CELL COUNT 4.71 mill/uL (4.7-6.1); RED CELL DISTRIBUTION WIDTH 13.1 % (11.6-14.6)
[2021-06-09 08:00] VITALS: BP 109/63
[2021-06-09] MEDS: LEVETIRACETAM 500MG TABLET PO SCH (09:47)
[2021-06-09] MEDS: ZONISAMIDE 100MG CAPSULE PO SCH (09:47)
[2021-06-09] MEDS: LAMOTRIGINE 100MG TABLET PO SCH (09:47)
[2021-06-09] MEDS: ENOXAPARIN 30MG/0.3ML SYR SUBCUT SCH (09:48)
[2021-06-09 12:00] VITALS: BP 113/70
[2021-06-09 16:00] VITALS: BP 125/68
[2021-06-09 16:26] VITALS: BP 156/67
[2021-06-09] MEDS ORDERED: LEVOFLOXACIN 500MG TABLET PO SCH (19:00)
[2021-06-13 09:09] LABS: LEVETIRACETAM / KEPPRA 4.5 ug/mL (10.0-40.0)
== END 2021-06-09 23:08 | disposition home or self-care (01) | DRG 53 ==
LOC: ER 15:00 → 5EST 21:04 → EDBEDREQSVC 21:09 → EDBEDREQTM 21:09 → EDBEDREQ 21:09 → ENRESERV 06-08 07:28
PROVIDERS: ADMIT Internal Medicine; ATTEND Internal Medicine
DX: G40.911 Epilepsy, unspecified, intractable, with status epilepticus (principal); J69.0 Pneumonitis due to inhalation of food and vomit; Z20.822 Contact with and (suspected) exposure to COVID-19; F84.0 Autistic disorder; Z82.49 Family history of ischemic heart disease and other diseases of the circulatory system; Z79.899 Other long term (current) drug therapy; Z91.012 Allergy to eggs
CPT/HCPCS: 36415; 71045; 80048; 80053; 80305; 80320; 81003; 82542; 82962; 84443; 85025; 87426; 93005; 99291; J0456; J0696; J1650; J1953; J1956; J7030; J7042; G0480

== ENCOUNTER 2021-07-06 15:43 | Emergency (ER) | payer MEDICAID ==
[~2021-07-06] VITALS: Ht 172.7 cm; Wt 73.0 kg
[2021-07-06] MEDS ORDERED: SODIUM CHLORIDE 0.9% 1,000 ML IV ONE (16:00)
[2021-07-06] MEDS ORDERED: LEVETIRACETAM 1000MG PREMIX 100 ML IV ONE (16:00)
[2021-07-06 20:09] LABS: HEMATOCRIT. 46.8 % (42.0-52.0); HEMOGLOBIN. 16.1 g/dL (14.0-18.0); MEAN CORPUSCULAR HEMOGLOBIN 29.2 pg (28.0-32.0); MEAN CORPUSCULAR VOLUME 84.9 fL (80.0-94.0); MEAN PLATELET VOLUME 8.6 fl (7.4-10.4); PLATELET 295 x1000/uL (130-400); RED BLOOD CELL COUNT 5.51 mill/uL (4.7-6.1); RED CELL DISTRIBUTION WIDTH 13.8 % (11.6-14.6)
[2021-07-06 20:14] LABS: CHLORIDE 113 mEq/L (98-107)
[2021-07-06 20:18] LABS: ETHANOL BLOOD < 10 mg/dL
[2021-07-06 21:37] LABS: PLATELET ESTIMATE NORMAL
[2021-07-06 22:27] LABS: CLARITY URINE CLEAR (CLEAR); COLOR URINE YELLOW (YELLOW); KETONES URINE TRACE (NEGATIVE); LEUKOCYTE ESTERASE URINE NEGATIVE (NEGATIVE); NITRITE URINE NEGATIVE (NEGATIVE); OCCULT BLOOD URINE NEGATIVE (NEGATIVE); PROTEIN URINE 1+ (NEGATIVE)
[2021-07-06 22:37] LABS: *BENZODIAZEPINES SCREEN URINE PRESUMTIVE POSITIVE (NEGATIVE); *COCAINE SCREEN URINE NEGATIVE (NEGATIVE)
[2021-07-06 22:38] LABS: *AMPHETAMINES SCREEN URINE NEGATIVE (NEGATIVE); *BARBITURATES SCREEN URINE NEGATIVE (NEGATIVE); CANNABINOID URINE SCREEN NEGATIVE (NEGATIVE); METHADONE URINE SCREEN NEGATIVE (NEGATIVE); OPIATES URINE SCREEN NEGATIVE (NEGATIVE); PHENCYCLIDINE URINE SCREEN NEGATIVE (NEGATIVE)
[2021-07-06 23:05] VITALS: BP 121/53
== END 2021-07-07 00:12 | disposition home or self-care (01) ==
LOC: ER 15:43
DX: R56.9 Unspecified convulsions (principal); Z91.14 Patient's other noncompliance with medication regimen
CPT/HCPCS: 36415; 70450; 80053; 80305; 80320; 81003; 82962; 85025; 96361; 96365; 99284; J1953; J7030; G0480

== ENCOUNTER 2021-07-12 10:17 | Emergency (ER) | payer MEDICAID ==
[~2021-07-12] VITALS: Ht 172.7 cm; Wt 86.0 kg
[2021-07-12] MEDS ORDERED: SODIUM CHLORIDE 0.9% 1,000 ML IV ONE (11:00)
[2021-07-12] MEDS ORDERED: LEVETIRACETAM 1000MG PREMIX 100 ML IV NR (11:00)
[2021-07-12] MEDS ORDERED: LORAZEPAM 2MG/ML CPJ IV PRN (11:00)
[2021-07-12 11:28] LABS: BASOPHILS % 0.7 % (0.0-2.0); EOSINOPHILS % 1.3 % (0.0-5.0); HEMATOCRIT. 50.6 % (42.0-52.0); HEMOGLOBIN. 16.8 g/dL (14.0-18.0); LYMPHOCYTES % 35.4 % (20.0-50.0); MEAN CORPUSCULAR HEMOGLOBIN 29.9 pg (28.0-32.0); MEAN PLATELET VOLUME 8.5 fl (7.4-10.4); MONOCYTES % 2.8 % (2.0-8.0); NEUTROPHILS % 59.8 % (40.0-76.0); PLATELET 451 x1000/uL (130-400); RED BLOOD CELL COUNT 5.62 mill/uL (4.7-6.1); RED CELL DISTRIBUTION WIDTH 13.4 % (11.6-14.6)
[2021-07-12 11:32] LABS: CHLORIDE 105 mEq/L (98-107)
[2021-07-12 12:07] LABS: ETHANOL BLOOD < 10 mg/dL
[2021-07-12 20:00] VITALS: BP 111/51
== END 2021-07-12 20:09 | disposition home or self-care (01) ==
LOC: ER 10:31
DX: R56.9 Unspecified convulsions (principal); Z98.890 Other specified postprocedural states; Z91.14 Patient's other noncompliance with medication regimen; Z91.012 Allergy to eggs
CPT/HCPCS: 36415; 71045; 80053; 80320; 85025; 93005; 96365; 99285; J1953; Z7610; G0480

== ENCOUNTER 2021-07-22 15:42 | Emergency (ER) | payer MEDICAID ==
[~2021-07-22] VITALS: Ht 172.7 cm; Wt 85.0 kg
[2021-07-22] MEDS ORDERED: LEVETIRACETAM 1000MG PREMIX 100 ML IV ONE (17:45)
[2021-07-22] MEDS ORDERED: LEVETIRACETAM 1000MG PREMIX 100 ML IV NR (18:30)
[2021-07-22 18:47] LABS: BASOPHILS % 0.5 % (0.0-2.0); EOSINOPHILS % 0.8 % (0.0-5.0); HEMATOCRIT. 47.8 % (42.0-52.0); HEMOGLOBIN. 16.2 g/dL (14.0-18.0); LYMPHOCYTES % 10.1 % (20.0-50.0); MEAN CORPUSCULAR VOLUME 85.2 fL (80.0-94.0); MEAN PLATELET VOLUME 8.2 fl (7.4-10.4); MONOCYTES % 4.8 % (2.0-8.0); NEUTROPHILS % 83.8 % (40.0-76.0); PLATELET 357 x1000/uL (130-400); RED BLOOD CELL COUNT 5.61 mill/uL (4.7-6.1); RED CELL DISTRIBUTION WIDTH 13.7 % (11.6-14.6)
[2021-07-22 18:52] LABS: CHLORIDE 111 mEq/L (98-107)
[2021-07-22 19:06] LABS: CARBAMAZEPINE < 0.5 ug/mL (4-12); PHENOBARBITAL < 2.1 ug/mL (15.0-40.0); VALPROIC ACID < 3.0 ug/mL (50-100)
[2021-07-22] MEDS ORDERED: POTASSIUM CHLORIDE 20MEQ/PACKET PO ONE (20:00)
[2021-07-22 21:51] LABS: ETHANOL BLOOD 12 mg/dL
[2021-07-23 00:35] VITALS: BP 137/66
== END 2021-07-23 00:46 | disposition home or self-care (01) ==
LOC: ER 15:42
DX: R56.9 Unspecified convulsions (principal); F84.0 Autistic disorder; Z91.012 Allergy to eggs
CPT/HCPCS: 36415; 80053; 80156; 80165; 80184; 80185; 80320; 85025; 96365; 96366; 99285; J1953; G0480

== ENCOUNTER 2021-11-28 15:31 | Emergency (ER) | payer MEDICAID ==
[~2021-11-28] VITALS: Ht 177.8 cm; Wt 113.0 kg
[2021-11-28] MEDS ORDERED: LEVETIRACETAM 1000MG PREMIX 100 ML IV ONE ×2 (15:45→16:30)
[2021-11-28 16:15] LABS: BASOPHILS % 0.5 % (0.0-2.0); EOSINOPHILS % 1.9 % (0.0-5.0); HEMATOCRIT. 45.5 % (42.0-52.0); HEMOGLOBIN. 15.5 g/dL (14.0-18.0); MEAN CORPUSCULAR HEMOGLOBIN 29.3 pg (28.0-32.0); MONOCYTES % 5.8 % (2.0-8.0); NEUTROPHILS % 69.8 % (40.0-76.0); PLATELET 243 x1000/uL (130-400); RED CELL DISTRIBUTION WIDTH 13.6 % (11.6-14.6)
[2021-11-28 16:18] VITALS: BP 138/73
[2021-11-28 16:19] LABS: CHLORIDE 114 mEq/L (98-107)
[2021-11-28 16:28] LABS: ETHANOL BLOOD < 10 mg/dL
[2021-11-28] MEDS ORDERED: LEVE1000 MT (16:53)
== END 2021-11-28 17:55 | disposition home or self-care (01) ==
LOC: ER 15:31
DX: G40.909 Epilepsy, unspecified, not intractable, without status epilepticus (principal); F84.0 Autistic disorder; Z91.012 Allergy to eggs
CPT/HCPCS: 36415; 80053; 80320; 85025; 93005; 96365; 99284; J1953; G0480

== ENCOUNTER 2022-01-28 13:09 | Emergency (ER) | payer MEDICAID ==
[~2022-01-28] VITALS: Ht 175.3 cm; Wt 118.0 kg
[~2022-01-28 13:09] MED LIST changes: -KEPP500 PO; -LAM1 PO; -TOPAMAX; -ZONI100C34 MT
[2022-01-28] MEDS ORDERED: LEVETIRACETAM 500MG PREMIX 100 ML IV ONE (14:00)
[2022-01-28 14:14] LABS: BASOPHILS % 0.3 % (0.0-2.0); EOSINOPHILS % 2.3 % (0.0-5.0); HEMATOCRIT. 46.1 % (42.0-52.0); HEMOGLOBIN. 15.6 g/dL (14.0-18.0); LYMPHOCYTES % 17.8 % (20.0-50.0); MEAN CORPUSCULAR HEMOGLOBIN 29.7 pg (28.0-32.0); MEAN CORPUSCULAR VOLUME 87.5 fL (80.0-94.0); MONOCYTES % 4.6 % (2.0-8.0); PLATELET 305 x1000/uL (130-400); RED BLOOD CELL COUNT 5.27 mill/uL (4.7-6.1); RED CELL DISTRIBUTION WIDTH 13.7 % (11.6-14.6)
[2022-01-28 14:21] LABS: CHLORIDE 112 mEq/L (98-107)
[2022-01-28 17:27] VITALS: BP 111/71
== END 2022-01-28 17:41 | disposition home or self-care (01) ==
LOC: ER 13:09
DX: G40.909 Epilepsy, unspecified, not intractable, without status epilepticus (principal); F84.0 Autistic disorder; Z91.012 Allergy to eggs
CPT/HCPCS: 36415; 80053; 85025; 96365; 99284; J1953

== ENCOUNTER 2022-02-02 13:57 | Emergency (ER) | payer MEDICAID ==
[~2022-02-02] VITALS: Ht 177.8 cm; Wt 113.0 kg
[2022-02-02] MEDS ORDERED: SODIUM CHLORIDE 0.9% 1,000 ML IV ONE ×2 (14:30→16:30)
[2022-02-02] MEDS ORDERED: LEVETIRACETAM 1000MG PREMIX 100 ML IV ONE (14:30)
[2022-02-02 15:44] LABS: CHLORIDE 111 mEq/L (98-107)
[2022-02-02 15:54] LABS: ETHANOL BLOOD < 10 mg/dL; PHOSPHORUS 1.1 mg/dL (2.5-4.9)
[2022-02-02 16:12] LABS: BASOPHILS % 0.2 % (0.0-2.0); EOSINOPHILS % 0.4 % (0.0-5.0); HEMATOCRIT. 43.6 % (42.0-52.0); HEMOGLOBIN. 14.9 g/dL (14.0-18.0); LYMPHOCYTES % 7.2 % (20.0-50.0); MEAN CORPUSCULAR HEMOGLOBIN 29.5 pg (28.0-32.0); MEAN CORPUSCULAR VOLUME 86.1 fL (80.0-94.0); MEAN PLATELET VOLUME 7.9 fl (7.4-10.4); MONOCYTES % 6.4 % (2.0-8.0); NEUTROPHILS % 85.8 % (40.0-76.0); PLATELET 298 x1000/uL (130-400); RED BLOOD CELL COUNT 5.06 mill/uL (4.7-6.1); RED CELL DISTRIBUTION WIDTH 13.7 % (11.6-14.6)
[2022-02-02] MEDS ORDERED: POTASSIUM-SODIUM PHOSPHATE POWDER PACKET PO ONE (16:30)
[2022-02-02 17:30] LABS: CLARITY URINE CLEAR (CLEAR); COLOR URINE YELLOW (YELLOW); KETONES URINE NEGATIVE (NEGATIVE); LEUKOCYTE ESTERASE URINE NEGATIVE (NEGATIVE); NITRITE URINE NEGATIVE (NEGATIVE); OCCULT BLOOD URINE NEGATIVE (NEGATIVE); PROTEIN URINE 1+ (NEGATIVE); SPECIFIC GRAVITY URINE 1.016 (1.005-1.030); UROBILINOGEN URINE 0.2 E.U./dL (0.2-1.0)
[2022-02-02 18:11] VITALS: BP 123/59
== END 2022-02-02 19:36 | disposition home or self-care (01) ==
LOC: ER 13:57 → CANBEDREQ 02-03 13:12
DX: R56.9 Unspecified convulsions (principal); D72.829 Elevated white blood cell count, unspecified; F84.0 Autistic disorder
CPT/HCPCS: 36415; 71045; 80053; 80320; 81003; 83735; 84100; 85025; 93005; 96361; 96365; 99285; J1953; J7030; G0480

== ENCOUNTER 2022-02-28 20:18 | Emergency (ER) | payer MEDICAID ==
[~2022-02-28] VITALS: Ht 172.7 cm; Wt 137.0 kg
[2022-02-28] MEDS ORDERED: LEVETIRACETAM 1000MG PREMIX 100 ML IV ONE (20:30)
[2022-02-28 20:50] LABS: BASOPHILS % 0.7 % (0.0-2.0); EOSINOPHILS % 1.3 % (0.0-5.0); HEMATOCRIT. 48.4 % (42.0-52.0); HEMOGLOBIN. 16.3 g/dL (14.0-18.0); LYMPHOCYTES % 30.2 % (20.0-50.0); MEAN CORPUSCULAR HEMOGLOBIN 29.8 pg (28.0-32.0); MEAN CORPUSCULAR VOLUME 88.5 fL (80.0-94.0); MONOCYTES % 6.2 % (2.0-8.0); NEUTROPHILS % 61.6 % (40.0-76.0); RED BLOOD CELL COUNT 5.47 mill/uL (4.7-6.1); RED CELL DISTRIBUTION WIDTH 13.8 % (11.6-14.6)
[2022-02-28 21:06] LABS: CHLORIDE 112 mEq/L (98-107)
[2022-02-28 21:22] LABS: PLATELET 364 x1000/uL (130-400)
[2022-03-01 07:30] VITALS: BP 117/59
== END 2022-03-01 08:40 | disposition home or self-care (01) ==
LOC: ER 20:18
DX: G40.909 Epilepsy, unspecified, not intractable, without status epilepticus (principal); F84.0 Autistic disorder; R00.0 Tachycardia, unspecified; Z68.42 Body mass index [BMI] 45.0-49.9, adult; Z91.012 Allergy to eggs
CPT/HCPCS: 36415; 80053; 82962; 85025; 93005; 96365; 99284; J1953

== ENCOUNTER 2022-03-09 15:43 | Inpatient (IN) | payer MEDICAID ==
[~2022-03-09] VITALS: Ht 167.6 cm; Wt 115.0 kg
[2022-03-09] MEDS ORDERED: LEVETIRACETAM 500MG PREMIX 100 ML IV ONE (16:15)
[2022-03-09] MEDS ORDERED: SODIUM CHLORIDE 0.9% 1,000 ML IV ONE (16:15)
[2022-03-09 16:29] LABS: BASOPHILS % 1.3 % (0.0-2.0); EOSINOPHILS % 1.5 % (0.0-5.0); HEMATOCRIT. 52.7 % (42.0-52.0); HEMOGLOBIN. 17.2 g/dL (14.0-18.0); LYMPHOCYTES % 35.1 % (20.0-50.0); MEAN CORPUSCULAR HEMOGLOBIN 29.7 pg (28.0-32.0); MEAN CORPUSCULAR VOLUME 90.9 fL (80.0-94.0); MEAN PLATELET VOLUME 8.5 fl (7.4-10.4); MONOCYTES % 4.5 % (2.0-8.0); NEUTROPHILS % 57.6 % (40.0-76.0); PLATELET 418 x1000/uL (130-400); RED CELL DISTRIBUTION WIDTH 13.4 % (11.6-14.6)
[2022-03-09] MEDS ORDERED: ONDANSETRON HCL 4MG/2ML INJ IV ONE (16:30)
[2022-03-09 16:41] LABS: CHLORIDE 110 mEq/L (98-107)
[2022-03-09 17:10] LABS: CARBAMAZEPINE < 0.5 ug/mL (4-12); ETHANOL BLOOD < 10 mg/dL; PHENOBARBITAL < 2.1 ug/mL (15.0-40.0); VALPROIC ACID < 3.0 ug/mL (50-100)
[2022-03-09 18:05] LABS: BG BASE EXCESS -7.4 mmol/L (-2.0-2.0); BG DEOXYHEMOGLOBIN 1.7 % (0.0-5.0); BG FRACTION INSPIRED OXYGEN 21; BG HCO3 ACT 18.1 mmol/L (22.0-26.0); BG METHEMOGLOBIN 0.4 % (0.0-1.5); BG OXYGEN SATURATION 98.3 % (92.0-98.5); BG OXYHEMOGLOBIN 97.9 % (94.0-97.0); BG PCO2 37.1 mmHg (35.0-45.0); BG PH 7.307 (7.350-7.450); BG PO2 132.4 mmHg (75.0-100.0); BG SAMPLE SITE RIGHT RADIAL; BG TOTAL HEMOGLOBIN 16.9 g/dL (12.0-18.0); BG VENT MODE ROOM AIR
[2022-03-09] MEDS ORDERED: LIDOCAINE HCL/EPINEPHRINE 1%-EPI 1:100,000 20 ML VIAL INFIL ONE (18:30)
[2022-03-09] MEDS ORDERED: TETANUS, DIPHTHERIA, PERTUSSIS VAC/PF 0.5ML (>10YR OLD) IM ONE (18:30)
[2022-03-09] MEDS ORDERED: LIDOCAINE HCL/EPINEPHRINE 1%-EPI 1:100,000 30 ML VIAL INFIL NR (18:30)
[2022-03-09] MEDS ORDERED: BACITRACIN ZINC OINT UDPKT TOP ONE (18:30)
[2022-03-09 23:20] VITALS: BP 134/58
[2022-03-09] MEDS ORDERED: LORAZEPAM 2MG/ML CPJ IV PRN (23:45)
[2022-03-10] MEDS ORDERED: HYDROCODONE/ACETAMINOPHEN 5/325MG TABLET PO PRN
[2022-03-10] MEDS ORDERED: ACETAMINOPHEN 325MG TABLET PO PRN
[2022-03-10] MEDS ORDERED: LEVE10006 PO (00:20)
[2022-03-10 04:00] VITALS: BP 109/61
[2022-03-10 07:04] LABS: BASOPHILS % 0.3 % (0.0-2.0); EOSINOPHILS % 0.4 % (0.0-5.0); HEMATOCRIT. 47.8 % (42.0-52.0); HEMOGLOBIN. 16.1 g/dL (14.0-18.0); LYMPHOCYTES % 21.2 % (20.0-50.0); MEAN CORPUSCULAR VOLUME 89.4 fL (80.0-94.0); MEAN PLATELET VOLUME 8.8 fl (7.4-10.4); MONOCYTES % 7.1 % (2.0-8.0); PLATELET 285 x1000/uL (130-400); RED BLOOD CELL COUNT 5.35 mill/uL (4.7-6.1); RED CELL DISTRIBUTION WIDTH 13.6 % (11.6-14.6)
[2022-03-10 07:28] LABS: CHLORIDE 111 mEq/L (98-107)
[2022-03-10 08:00] VITALS: BP 127/61
[2022-03-10] MEDS ORDERED: POTASSIUM CHLORIDE 20MEQ TABLET SR PO NR ×2 (08:30→17:08)
[2022-03-10] MEDS ORDERED: LEVETIRACETAM 500MG TABLET PO SCH (09:00)
[2022-03-10 12:00] VITALS: BP 116/57
[2022-03-10 16:00] VITALS: BP 125/71
[2022-03-10] MEDS: LAMOTRIGINE 25MG TABLET PO SCH (17:53)
[2022-03-10 20:00] VITALS: BP 122/68
[2022-03-10] MEDS: LEVETIRACETAM 500MG TABLET PO SCH (21:07)
[2022-03-11] VITALS (7 sets, daily range): BP systolic 121–150; BP diastolic 61–89
[2022-03-11] MEDS ORDERED: LAM25 PO (07:53)
[2022-03-11] MEDS ORDERED: KEPP500 PO (07:53)
[2022-03-11] MEDS: LEVETIRACETAM 500MG TABLET PO SCH (08:50)
[2022-03-11] MEDS: LAMOTRIGINE 25MG TABLET PO SCH (08:50)
[2022-03-11 10:38] LABS: BASOPHILS % 0.5 % (0.0-2.0); EOSINOPHILS % 3.6 % (0.0-5.0); HEMOGLOBIN. 15.2 g/dL (14.0-18.0); LYMPHOCYTES % 14.8 % (20.0-50.0); MEAN CORPUSCULAR HEMOGLOBIN 29.7 pg (28.0-32.0); MEAN CORPUSCULAR VOLUME 87.9 fL (80.0-94.0); NEUTROPHILS % 72.1 % (40.0-76.0); PLATELET 241 x1000/uL (130-400); RED BLOOD CELL COUNT 5.12 mill/uL (4.7-6.1); RED CELL DISTRIBUTION WIDTH 13.6 % (11.6-14.6)
[2022-03-11 18:03] LABS: CLARITY URINE CLEAR (CLEAR); COLOR URINE YELLOW (YELLOW); KETONES URINE NEGATIVE (NEGATIVE); LEUKOCYTE ESTERASE URINE NEGATIVE (NEGATIVE); NITRITE URINE NEGATIVE (NEGATIVE); OCCULT BLOOD URINE NEGATIVE (NEGATIVE); PROTEIN URINE NEGATIVE (NEGATIVE)
== END 2022-03-11 19:30 | disposition home or self-care (01) | DRG 53 ==
LOC: ER 15:43 → 7WST 20:59 → ENRESERV 22:30
PROVIDERS: ADMIT Internal Medicine; ATTEND Internal Medicine
PROC: 0HQ1XZZ Repair Face Skin, External Approach (ICD-10-PCS; 2022-03-09)
PROC: 4A00X4Z Measurement of Central Nervous Electrical Activity, External Approach (ICD-10-PCS; principal; 2022-03-10)
DX: G40.901 Epilepsy, unspecified, not intractable, with status epilepticus (principal); E87.2 Acidosis; R65.10 Systemic inflammatory response syndrome (SIRS) of non-infectious origin without acute organ dysfunction; E66.01 Morbid (severe) obesity due to excess calories; S01.511A Laceration without foreign body of lip, initial encounter; F84.0 Autistic disorder; R32 Unspecified urinary incontinence; Z91.018 Allergy to other foods; Z68.41 Body mass index [BMI] 40.0-44.9, adult; Z79.899 Other long term (current) drug therapy; W19.XXXA Unspecified fall, initial encounter; Y93.89 Activity, other specified; Y92.89 Other specified places as the place of occurrence of the external cause; Y99.8 Other external cause status
CPT/HCPCS: 36415; 36600; 71045; 80048; 80053; 80156; 80165; 80184; 80185; 80320; 81003; 82375; 82542; 82805; 82962; 83605; 83735; 84132; 84145; 84484; 85025; 90715; 93005; 99285; J1953; J2405; J3490; J7030; G0480

== ENCOUNTER 2022-05-11 11:50 | Emergency (ER) | payer MEDICAID ==
[~2022-05-11] VITALS: Ht 175.3 cm; Wt 112.0 kg
[~2022-05-11 11:50] MED LIST changes: +KEPP500 PO; +LAM25 PO; -LEVE1000 MT
[2022-05-11] MEDS ORDERED: LEVETIRACETAM 1000MG PREMIX 100 ML IV ONE (12:15)
[2022-05-11] MEDS ORDERED: SODIUM CHLORIDE 0.9% 1,000 ML IV ONE (12:15)
[2022-05-11 14:07] LABS: HEMATOCRIT. 47.3 % (42.0-52.0); HEMOGLOBIN. 16.4 g/dL (14.0-18.0); MEAN CORPUSCULAR HEMOGLOBIN 29.8 pg (28.0-32.0); MEAN PLATELET VOLUME 7.6 fl (7.4-10.4); PLATELET 320 x1000/uL (130-400); RED BLOOD CELL COUNT 5.49 mill/uL (4.7-6.1); RED CELL DISTRIBUTION WIDTH 13.3 % (11.6-14.6)
[2022-05-11 14:35] LABS: CHLORIDE 110 mEq/L (98-107)
[2022-05-11 14:47] LABS: ETHANOL BLOOD < 10 mg/dL
[2022-05-11 14:56] LABS: PLATELET ESTIMATE NORMAL
[2022-05-11 16:00] VITALS: BP 147/88
== END 2022-05-11 17:00 | disposition home or self-care (01) ==
LOC: ER 11:50
DX: G40.909 Epilepsy, unspecified, not intractable, without status epilepticus (principal); R00.0 Tachycardia, unspecified; S91.201A Unspecified open wound of right great toe with damage to nail, initial encounter; S80.211A Abrasion, right knee, initial encounter; F84.0 Autistic disorder; Z91.012 Allergy to eggs; X58.XXXA Exposure to other specified factors, initial encounter; Y93.9 Activity, unspecified; Y92.9 Unspecified place or not applicable
CPT/HCPCS: 36415; 70450; 73560; 73630; 80053; 80320; 83735; 85025; 93005; 96365; 99285; J1953; J7030; G0480

== ENCOUNTER 2022-06-07 16:25 | Emergency (ER) | payer MEDICAID ==
[~2022-06-07] VITALS: Ht 182.9 cm; Wt 120.0 kg
[2022-06-07] MEDS ORDERED: LEVETIRACETAM 500MG PREMIX 100 ML IV ONE (17:45)
[2022-06-07] MEDS ORDERED: SODIUM CHLORIDE 0.9% 1,000 ML IV ONE (17:45)
[2022-06-07 17:58] LABS: BASOPHILS % 0.5 % (0.0-2.0); EOSINOPHILS % 0.5 % (0.0-5.0); HEMATOCRIT. 48.1 % (42.0-52.0); HEMOGLOBIN. 16.4 g/dL (14.0-18.0); LYMPHOCYTES % 7.5 % (20.0-50.0); MEAN CORPUSCULAR HEMOGLOBIN 29.4 pg (28.0-32.0); MEAN CORPUSCULAR VOLUME 86.1 fL (80.0-94.0); MEAN PLATELET VOLUME 7.7 fl (7.4-10.4); MONOCYTES % 5.3 % (2.0-8.0); NEUTROPHILS % 86.2 % (40.0-76.0); PLATELET 376 x1000/uL (130-400); RED BLOOD CELL COUNT 5.59 mill/uL (4.7-6.1)
[2022-06-07 18:10] LABS: CHLORIDE 112 mEq/L (98-107)
[2022-06-07 20:13] VITALS: BP 136/68
== END 2022-06-07 20:13 | disposition home or self-care (01) ==
LOC: ER 16:25
DX: R56.9 Unspecified convulsions (principal); F84.0 Autistic disorder; Z91.012 Allergy to eggs
CPT/HCPCS: 36415; 80053; 85025; 96365; 99284; J1953; J7030

== ENCOUNTER 2022-06-14 20:01 | Emergency (ER) | payer MEDICAID ==
[~2022-06-14] VITALS: Ht 170.2 cm; Wt 137.0 kg
[2022-06-14 20:15] VITALS: BP 119/57
[2022-06-14] MEDS ORDERED: LEVETIRACETAM 1000MG PREMIX 100 ML IV ONE (20:30)
[2022-06-14 21:10] LABS: BASOPHILS % 0.5 % (0.0-2.0); EOSINOPHILS % 0.4 % (0.0-5.0); HEMATOCRIT. 51.5 % (42.0-52.0); HEMOGLOBIN. 17.1 g/dL (14.0-18.0); MEAN CORPUSCULAR HEMOGLOBIN 29.3 pg (28.0-32.0); MEAN CORPUSCULAR VOLUME 88.3 fL (80.0-94.0); MEAN PLATELET VOLUME 7.6 fl (7.4-10.4); MONOCYTES % 4.1 % (2.0-8.0); PLATELET 407 x1000/uL (130-400); RED BLOOD CELL COUNT 5.83 mill/uL (4.7-6.1); RED CELL DISTRIBUTION WIDTH 12.9 % (11.6-14.6)
[2022-06-14 23:24] LABS: CHLORIDE 110 mEq/L (98-107)
[2022-06-15 00:09] LABS: ETHANOL BLOOD < 10 mg/dL
== END 2022-06-14 23:46 | disposition home or self-care (01) ==
LOC: ER 20:01
DX: G40.909 Epilepsy, unspecified, not intractable, without status epilepticus (principal); Z91.012 Allergy to eggs
CPT/HCPCS: 36415; 70450; 80048; 80320; 82962; 85025; 96365; 99284; J1953; G0480

== ENCOUNTER 2022-06-20 21:32 | Emergency (ER) | payer MEDICAID ==
[~2022-06-20] VITALS: Ht 182.9 cm; Wt 100.0 kg
[2022-06-21] MEDS ORDERED: LEVETIRACETAM 1000MG PREMIX 100 ML IV ONE
[2022-06-21 00:30] LABS: BASOPHILS % 0.2 % (0.0-2.0); EOSINOPHILS % 0.1 % (0.0-5.0); HEMATOCRIT. 48.5 % (42.0-52.0); HEMOGLOBIN. 16.6 g/dL (14.0-18.0); LYMPHOCYTES % 7.1 % (20.0-50.0); MEAN CORPUSCULAR HEMOGLOBIN 29.1 pg (28.0-32.0); MEAN PLATELET VOLUME 8.5 fl (7.4-10.4); MONOCYTES % 4.5 % (2.0-8.0); NEUTROPHILS % 88.1 % (40.0-76.0); PLATELET 409 x1000/uL (130-400); RED CELL DISTRIBUTION WIDTH 13.5 % (11.6-14.6)
[2022-06-21 00:32] LABS: CHLORIDE 110 mEq/L (98-107)
[2022-06-21 03:16] VITALS: BP 134/81
== END 2022-06-21 03:17 | disposition home or self-care (01) ==
LOC: ER 21:32
DX: R56.9 Unspecified convulsions (principal); F84.0 Autistic disorder; Z91.012 Allergy to eggs
CPT/HCPCS: 36415; 80048; 85025; 96374; 99285; J1953

== ENCOUNTER 2022-07-21 12:13 | Emergency (ER) | payer MEDICAID ==
[~2022-07-21] VITALS: Ht 180.3 cm; Wt 100.0 kg
[2022-07-21 13:10] VITALS: BP 157/71
[2022-07-21] MEDS ORDERED: LEVETIRACETAM 500MG TABLET PO ONE (13:15)
[2022-07-21 14:03] LABS: HEMATOCRIT. 46.4 % (42.0-52.0); HEMOGLOBIN. 15.7 g/dL (14.0-18.0); MEAN CORPUSCULAR HEMOGLOBIN 29.8 pg (28.0-32.0); MEAN PLATELET VOLUME 7.9 fl (7.4-10.4); PLATELET 280 x1000/uL (130-400); RED BLOOD CELL COUNT 5.27 mill/uL (4.7-6.1); RED CELL DISTRIBUTION WIDTH 13.5 % (11.6-14.6)
[2022-07-21 14:14] LABS: CHLORIDE 111 mEq/L (98-107)
[2022-07-21 14:25] LABS: ETHANOL BLOOD < 10 mg/dL; PLATELET ESTIMATE NORMAL
== END 2022-07-21 15:16 | disposition home or self-care (01) ==
LOC: ER 12:13
DX: G40.509 Epileptic seizures related to external causes, not intractable, without status epilepticus (principal); D72.829 Elevated white blood cell count, unspecified; Z13.9 Encounter for screening, unspecified; Z91.012 Allergy to eggs
CPT/HCPCS: 36415; 80053; 80320; 85025; 99283; G0480

== ENCOUNTER 2022-08-22 18:19 | Emergency (ER) | payer MEDICAID ==
[~2022-08-22] VITALS: Ht 182.9 cm; Wt 114.0 kg
[2022-08-22] MEDS ORDERED: LEVETIRACETAM 500MG PREMIX 100 ML IV ONE (18:45)
[2022-08-22 19:05] LABS: BASOPHILS % 0.4 % (0.0-2.0); EOSINOPHILS % 1.1 % (0.0-5.0); HEMATOCRIT. 50.5 % (42.0-52.0); HEMOGLOBIN. 16.5 g/dL (14.0-18.0); LYMPHOCYTES % 36.1 % (20.0-50.0); MEAN CORPUSCULAR HEMOGLOBIN 29.9 pg (28.0-32.0); MEAN CORPUSCULAR VOLUME 91.7 fL (80.0-94.0); MEAN PLATELET VOLUME 8.4 fl (7.4-10.4); MONOCYTES % 6.3 % (2.0-8.0); NEUTROPHILS % 56.1 % (40.0-76.0); PLATELET 434 x1000/uL (130-400); RED BLOOD CELL COUNT 5.51 mill/uL (4.7-6.1); RED CELL DISTRIBUTION WIDTH 13.6 % (11.6-14.6)
[2022-08-22 19:10] LABS: CHLORIDE 114 mEq/L (98-107)
[2022-08-23] VITALS: BP 139/71
== END 2022-08-23 01:25 | disposition home or self-care (01) ==
LOC: ER 18:19
DX: G40.909 Epilepsy, unspecified, not intractable, without status epilepticus (principal); Z91.012 Allergy to eggs
CPT/HCPCS: 36415; 70450; 80053; 85025; 96365; 99285; J1953; Z7610

== ENCOUNTER 2022-11-13 10:12 | Emergency (ER) | payer MEDICAID ==
[~2022-11-13] VITALS: Ht 172.7 cm; Wt 115.0 kg
[2022-11-13 10:21] VITALS: BP 124/76
[2022-11-13] MEDS ORDERED: LEVETIRACETAM 1,000 MG in SODIUM CHLORIDE 0.9% 100 ML IV SCH (11:15)
[2022-11-13] MEDS ORDERED: LEVETIRACETAM 1000MG PREMIX 100 ML IV NR (11:15)
[2022-11-13 11:51] LABS: BASOPHILS % 0.1 % (0.0-2.0); EOSINOPHILS % 0.6 % (0.0-5.0); HEMATOCRIT. 45.5 % (42.0-52.0); HEMOGLOBIN. 15.6 g/dL (14.0-18.0); LYMPHOCYTES % 7.6 % (20.0-50.0); MEAN CORPUSCULAR VOLUME 87.7 fL (80.0-94.0); MEAN PLATELET VOLUME 7.8 fl (7.4-10.4); MONOCYTES % 6.1 % (2.0-8.0); NEUTROPHILS % 85.6 % (40.0-76.0); PLATELET 275 x1000/uL (130-400); RED BLOOD CELL COUNT 5.18 mill/uL (4.7-6.1); RED CELL DISTRIBUTION WIDTH 13.1 % (11.6-14.6)
[2022-11-13 12:16] LABS: CHLORIDE 115 mEq/L (98-107)
[2022-11-13 12:23] LABS: ETHANOL BLOOD < 10 mg/dL; PHOSPHORUS 1.5 mg/dL (2.5-4.9)
[2022-11-13] MEDS ORDERED: POTASSIUM-SODIUM PHOSPHATE POWDER PACKET PO NR (13:30)
== END 2022-11-13 14:22 | disposition home or self-care (01) ==
LOC: ER 10:33
DX: R56.9 Unspecified convulsions (principal); E83.39 Other disorders of phosphorus metabolism
CPT/HCPCS: 36415; 80053; 80320; 83735; 84100; 85025; 96365; 96366; 99284; J1953; J7050; G0480

== ENCOUNTER 2023-03-03 22:34 | Emergency (ER) | payer MEDICAID ==
[~2023-03-03] VITALS: Ht 175.3 cm; Wt 150.0 kg
[2023-03-03 22:39] VITALS: O2SAT 99
[2023-03-03] MEDS ORDERED: LEVETIRACETAM 1000MG PREMIX 100 ML IV ONE (22:45)
[2023-03-03 23:24] LABS: CHLORIDE 115 mEq/L (98-107); INDEX HEMOLYSI 1 (1-3); INDEX ICTERIC 1 (1-4); INDEX LIPEMIC 1 (1-3); POTASSIUM 3.9 mEq/L (3.5-5.1); SODIUM 139 mEq/L (136-145)
[2023-03-03 23:31] LABS: ALANINE AMINOTRANSFERASE 49 IU/L (13-61); ASPARTATE AMINOTRANSFERASE 28 IU/L (15-37); BILIRUBIN TOTAL 0.4 mg/dL (0.1-1.0); CALCIUM 8.6 mg/dL (8.5-10.1); CREATININE 1.2 mg/dL (0.6-1.3); ETHANOL BLOOD < 10 mg/dL (-10); GLUCOSE 195 mg/dL (70-105); PROTEIN TOTAL 8.5 g/dL (6.0-8.3); UREA NITROGEN BLOOD 10 mg/dL (7-21)
[2023-03-03 23:36] LABS: BASOPHILS % 0.7 % (0.0-2.0); EOSINOPHILS % 1.4 % (0.0-5.0); HEMATOCRIT. 50.3 % (42.0-52.0); HEMOGLOBIN. 16.4 g/dL (14.0-18.0); MEAN CORPUSCULAR HEMOGLOBIN 29.2 pg (28.0-32.0); MEAN CORPUSCULAR HGB CONC 32.7 g/dL (31.0-37.0); MEAN CORPUSCULAR VOLUME 89.4 fL (80.0-94.0); MEAN PLATELET VOLUME 7.8 fl (7.4-10.4); MONOCYTES % 4.3 % (2.0-8.0); NEUTROPHILS % 65.6 % (40.0-76.0); PLATELET 485 x1000/uL (130-400); RED BLOOD CELL COUNT 5.62 mill/uL (4.7-6.1); RED CELL DISTRIBUTION WIDTH 13.6 % (11.6-14.6); WHITE BLOOD COUNT 29.7 x1000/uL (4.5-11.0)
[2023-03-03 23:39] LABS: CLARITY URINE CLEAR (CLEAR); COLOR URINE YELLOW (YELLOW); SPECIFIC GRAVITY URINE 1.025 (1.005-1.030)
[2023-03-03 23:40] LABS: GLUCOSE URINE NEGATIVE (NEGATIVE); KETONES URINE NEGATIVE (NEGATIVE); NITRITE URINE NEGATIVE (NEGATIVE); OCCULT BLOOD URINE 1+ (NEGATIVE); PROTEIN URINE 2+ (NEGATIVE)
[2023-03-03 23:41] LABS: LEUKOCYTE ESTERASE URINE NEGATIVE (NEGATIVE); UROBILINOGEN URINE 0.2 E.U./dL (0.2-1.0)
[2023-03-03 23:42] LABS: *AMPHETAMINES SCREEN URINE NEGATIVE (NEGATIVE); *BARBITURATES SCREEN URINE NEGATIVE (NEGATIVE); *BENZODIAZEPINES SCREEN URINE PRESUMTIVE POSITIVE (NEGATIVE); *COCAINE SCREEN URINE NEGATIVE (NEGATIVE); CANNABINOID URINE SCREEN NEGATIVE (NEGATIVE); ECSTASY MDMA SCREEN URINE NEGATIVE (NEGATIVE); METHADONE URINE SCREEN NEGATIVE (NEGATIVE); OPIATES URINE SCREEN NEGATIVE (NEGATIVE); PHENCYCLIDINE URINE SCREEN NEGATIVE (NEGATIVE)
[2023-03-03 23:50] LABS: CARBON DIOXIDE 8 mEq/L (21-32)
[2023-03-04] MEDS ORDERED: SODIUM CHLORIDE 0.9% 1,000 ML IV ONE (01:15)
[2023-03-04 02:28] LABS: CHLORIDE 117 mEq/L (98-107); INDEX HEMOLYSI 3 (1-3); INDEX ICTERIC 1 (1-4); INDEX LIPEMIC 1 (1-3); POTASSIUM 3.5 mEq/L (3.5-5.1); SODIUM 140 mEq/L (136-145)
[2023-03-04 02:34] LABS: CALCIUM 8.5 mg/dL (8.5-10.1); CARBON DIOXIDE 19 mEq/L (21-32); CREATININE 1.1 mg/dL (0.6-1.3); GLUCOSE 115 mg/dL (70-105); UREA NITROGEN BLOOD 10 mg/dL (7-21)
[2023-03-04 03:10] VITALS: BP 132/84; PULSE 82; RESP 19; TEMP 98
[2023-03-04 07:29] LABS: BACTERIA URINE 2+; RBC URINE NONE SEEN /hpf (0-2); SQUAMOUS EPITHELIAL CELL URINE NONE SEEN /lpf (RARE/1+); YEAST URINE NONE SEEN
[2023-03-04 07:30] LABS: AMORPHOUS SEDIMENT URINE 3+ /lpf
== END 2023-03-04 03:30 | disposition home or self-care (01) ==
LOC: ER 22:34
DX: R56.9 Unspecified convulsions (principal)
CPT/HCPCS: 80053; 80305; 81003; 80320; 82962; 85025; 36415 ×2; 93005; 96365; 99284; 80048; J1953; Z7610; J7030; G0480

== ENCOUNTER 2023-03-15 20:41 | Emergency (ER) | payer MEDICAID ==
[~2023-03-15] VITALS: Ht 177.8 cm; Wt 113.0 kg
[2023-03-15 20:43] VITALS: TEMP 98.8; O2SAT 97
[2023-03-15] MEDS ORDERED: LEVETIRACETAM 500MG PREMIX 100 ML IV ONE (21:00)
[2023-03-15 21:19] LABS: BASOPHILS % 0.6 % (0.0-2.0); HEMATOCRIT. 51.8 % (42.0-52.0); HEMOGLOBIN. 16.9 g/dL (14.0-18.0); LYMPHOCYTES % 28.3 % (20.0-50.0); MEAN CORPUSCULAR HEMOGLOBIN 29.3 pg (28.0-32.0); MEAN CORPUSCULAR HGB CONC 32.5 g/dL (31.0-37.0); MEAN CORPUSCULAR VOLUME 90.1 fL (80.0-94.0); MEAN PLATELET VOLUME 8.5 fl (7.4-10.4); MONOCYTES % 5.7 % (2.0-8.0); NEUTROPHILS % 64.4 % (40.0-76.0); PLATELET 512 x1000/uL (130-400); RED BLOOD CELL COUNT 5.75 mill/uL (4.7-6.1); RED CELL DISTRIBUTION WIDTH 13.9 % (11.6-14.6); WHITE BLOOD COUNT 22.7 x1000/uL (4.5-11.0)
[2023-03-15 21:37] LABS: CHLORIDE 109 mEq/L (98-107); INDEX HEMOLYSI 1 (1-3); INDEX ICTERIC 1 (1-4); INDEX LIPEMIC 1 (1-3); POTASSIUM 4.3 mEq/L (3.5-5.1); SODIUM 138 mEq/L (136-145)
[2023-03-15 21:48] LABS: ALANINE AMINOTRANSFERASE 36 IU/L (13-61); ALBUMIN 4.3 g/dL (3.4-5.0); ASPARTATE AMINOTRANSFERASE 22 IU/L (15-37); BILIRUBIN TOTAL 0.3 mg/dL (0.1-1.0); CALCIUM 9.5 mg/dL (8.5-10.1); CREATININE 1.1 mg/dL (0.6-1.3); GLUCOSE 170 mg/dL (70-105); PROTEIN TOTAL 8.8 g/dL (6.0-8.3); UREA NITROGEN BLOOD 12 mg/dL (7-21)
[2023-03-15 22:03] LABS: CARBON DIOXIDE 6 mEq/L (21-32)
[2023-03-15 23:00] LABS: CLARITY URINE CLOUDY (CLEAR); COLOR URINE YELLOW (YELLOW); GLUCOSE URINE NEGATIVE (NEGATIVE); KETONES URINE TRACE (NEGATIVE); LEUKOCYTE ESTERASE URINE NEGATIVE (NEGATIVE); NITRITE URINE NEGATIVE (NEGATIVE); OCCULT BLOOD URINE NEGATIVE (NEGATIVE); PROTEIN URINE 2+ (NEGATIVE); SPECIFIC GRAVITY URINE 1.021 (1.005-1.030)
[2023-03-15 23:02] LABS: BACTERIA URINE NONE SEEN; SQUAMOUS EPITHELIAL CELL URINE 1+ /lpf (RARE/1+); WBC URINE 0-2 /hpf (0-2); YEAST URINE NONE SEEN
[2023-03-15 23:23] VITALS: BP 141/85; PULSE 113; RESP 18
== END 2023-03-15 23:32 | disposition home or self-care (01) ==
LOC: ER 20:41
DX: G40.909 Epilepsy, unspecified, not intractable, without status epilepticus (principal); Z91.012 Allergy to eggs
CPT/HCPCS: 80053; 81003; 85025; 36415; 96365; 99284; J1953; Z7610 ×2

== ENCOUNTER 2023-05-21 09:25 | Emergency (ER) | payer MEDICAID ==
[~2023-05-21] VITALS: Ht 177.8 cm; Wt 140.0 kg
[~2023-05-21 09:25] MED LIST changes: +LAMO150T5 MT; +LEVE10006 MT; +ZONI100C45 MT
[2023-05-21 09:26] VITALS: O2SAT 95
[2023-05-21 10:06] LABS: CHLORIDE 111 mEq/L (98-107); INDEX HEMOLYSI 1 (1-3); INDEX ICTERIC 1 (1-4); INDEX LIPEMIC 1 (1-3); POTASSIUM 4.1 mEq/L (3.5-5.1); SODIUM 141 mEq/L (136-145)
[2023-05-21 10:08] LABS: BASOPHILS % 1.2 % (0.0-2.0); HEMATOCRIT. 51.1 % (42.0-52.0); LYMPHOCYTES % 31.6 % (20.0-50.0); MEAN CORPUSCULAR HEMOGLOBIN 29.9 pg (28.0-32.0); MEAN CORPUSCULAR HGB CONC 33.2 g/dL (31.0-37.0); MEAN CORPUSCULAR VOLUME 89.9 fL (80.0-94.0); MONOCYTES % 4.2 % (2.0-8.0); RED BLOOD CELL COUNT 5.68 mill/uL (4.7-6.1); RED CELL DISTRIBUTION WIDTH 13.4 % (11.6-14.6); WHITE BLOOD COUNT 16.6 x1000/uL (4.5-11.0)
[2023-05-21 10:15] LABS: ALANINE AMINOTRANSFERASE 42 IU/L (13-61); ASPARTATE AMINOTRANSFERASE 18 IU/L (15-37); BILIRUBIN TOTAL 0.4 mg/dL (0.1-1.0); CALCIUM 8.9 mg/dL (8.5-10.1); CARBON DIOXIDE 11 mEq/L (21-32); CREATININE 1.1 mg/dL (0.6-1.3); DIFFERENTIAL COMMENT 1; GLUCOSE 121 mg/dL (70-105); PROTEIN TOTAL 8.4 g/dL (6.0-8.3); UREA NITROGEN BLOOD 13 mg/dL (7-21)
[2023-05-21] MEDS ORDERED: LEVETIRACETAM 4,500 MG in SODIUM CHLORIDE 0.9% 100 ML IV NR (10:15)
[2023-05-21 10:50] LABS: MEAN PLATELET VOLUME 8.5 fl (7.4-10.4); PLATELET 418 x1000/uL (130-400)
[2023-05-21 14:50] VITALS: BP 125/76; PULSE 97; RESP 12; TEMP 98.2
== END 2023-05-21 15:20 | disposition left against medical advice (07) ==
LOC: ER 09:47 → EDBEDREQTM 11:46 → EDBEDREQSVC 11:46 → EDBEDREQ 11:46 → CANBEDREQ 14:58 → ER 15:20
DX: G40.901 Epilepsy, unspecified, not intractable, with status epilepticus (principal); Z91.012 Allergy to eggs
CPT/HCPCS: 80053; 85025; 36415; 96365; 99285; J1953; J7050; Z7610 ×3

== ENCOUNTER 2023-06-24 10:25 | Emergency (ER) | payer MEDICAID ==
[~2023-06-24] VITALS: Ht 175.3 cm; Wt 72.6 kg
[~2023-06-24 10:25] MED LIST changes: +KEPP250 MT; -KEPP500 PO; +LAM15 PO; -LAM25 PO; -LAMO150T5 MT; +LEVE1000 MT; -LEVE10006 MT; -ZONI100C45 MT; +ZONI100C45 PO
[2023-06-24] MEDS ORDERED: LEVETIRACETAM 1000MG PREMIX 100 ML IV ONE (11:15)
[2023-06-24] MEDS ORDERED: SODIUM CHLORIDE 0.9% 1,000 ML IV ONE (11:15)
[2023-06-24 11:47] LABS: BASOPHILS % 0.4 % (0.0-2.0); DIFFERENTIAL COMMENT 0; EOSINOPHILS % 1.8 % (0.0-5.0); HEMATOCRIT. 52.5 % (42.0-52.0); HEMOGLOBIN. 16.5 g/dL (14.0-18.0); LYMPHOCYTES % 38.1 % (20.0-50.0); MEAN CORPUSCULAR HEMOGLOBIN 29.2 pg (28.0-32.0); MEAN CORPUSCULAR HGB CONC 31.4 g/dL (31.0-37.0); MEAN PLATELET VOLUME 8.8 fl (7.4-10.4); MONOCYTES % 5.4 % (2.0-8.0); NEUTROPHILS % 54.3 % (40.0-76.0); PLATELET 475 x1000/uL (130-400); RED BLOOD CELL COUNT 5.65 mill/uL (4.7-6.1); WHITE BLOOD COUNT 20.1 x1000/uL (4.5-11.0)
[2023-06-24 11:50] LABS: ALANINE AMINOTRANSFERASE 34 IU/L (10-49); ALBUMIN 4.8 g/dL (3.2-4.8); ASPARTATE AMINOTRANSFERASE 38 IU/L (<34); BILIRUBIN TOTAL 0.7 mg/dL (0.1-1.0); CALCIUM 9.5 mg/dL (8.7-10.4); CARBON DIOXIDE 11 mEq/L (21-32); CHLORIDE 104 mEq/L (98-107); CREATININE 1.2 mg/dL (0.6-1.3); GLUCOSE 122 mg/dL (70-105); POTASSIUM 4.3 mEq/L (3.5-5.1); PROTEIN TOTAL 8.6 g/dL (6.0-8.3); SODIUM 141 mEq/L (136-145); UREA NITROGEN BLOOD 11 mg/dL (9-23)
[2023-06-24 11:53] LABS: PHENOBARBITAL < 3.0 ug/mL (15.0-40.0)
[2023-06-24 11:54] LABS: CARBAMAZEPINE < 0.4 ug/mL (4-12); PHENYTOIN < 2.0 ug/mL (10-20); VALPROIC ACID < 3.0 ug/mL (50-100)
[2023-06-24 15:51] VITALS: BP 116/58; PULSE 78; RESP 18; TEMP 98.3
== END 2023-06-24 15:53 | disposition home or self-care (01) ==
LOC: ER 10:33
DX: R56.9 Unspecified convulsions (principal)
CPT/HCPCS: 80053; 80156; 80185; 80184; 80165; 85025; 36415; 96365; 99285; J1953; J7030; Z7610 ×3

== ENCOUNTER 2023-07-25 22:10 | Emergency (ER) | payer MEDICAID ==
[~2023-07-25] VITALS: Ht 190.5 cm; Wt 160.0 kg
[2023-07-25 22:16] VITALS: O2SAT 93
[2023-07-25] MEDS ORDERED: LEVETIRACETAM 500MG TABLET PO ONE (22:30)
[2023-07-25 23:18] VITALS: TEMP 98.6
[2023-07-26] MEDS ORDERED: LAM15 PO ×2 (01:18→14:23)
[2023-07-26] MEDS ORDERED: ZONI100C45 PO ×2 (01:18→14:23)
[2023-07-26] MEDS ORDERED: KEPP250 MT ×2 (01:18→14:23)
[2023-07-26 02:21] VITALS: BP 142/71; PULSE 96; RESP 18
== END 2023-07-26 09:02 | disposition home or self-care (01) ==
LOC: ER 22:10
DX: R56.9 Unspecified convulsions (principal); Z91.018 Allergy to other foods
CPT/HCPCS: 82962; 99283

== ENCOUNTER 2023-12-16 15:20 | Emergency (ER) | payer MEDICAID ==
[~2023-12-16] VITALS: Ht 177.8 cm; Wt 105.0 kg
[~2023-12-16 15:20] MED LIST changes: -KEPP250 MT; +KEPP250 PO; +LACO100T2 PO; -LEVE1000 MT
[2023-12-16 15:22] VITALS: O2SAT 100
[2023-12-16 15:43] LABS: BASOPHILS % 0.4 % (0.0-2.0); EOSINOPHILS % 1.8 % (0.0-5.0); HEMATOCRIT. 44.2 % (42.0-52.0); HEMOGLOBIN. 15.3 g/dL (14.0-18.0); LYMPHOCYTES % 18.7 % (20.0-50.0); MEAN CORPUSCULAR HEMOGLOBIN 29.5 pg (28.0-32.0); MEAN CORPUSCULAR HGB CONC 34.6 g/dL (31.0-37.0); MEAN CORPUSCULAR VOLUME 85.1 fL (80.0-94.0); MEAN PLATELET VOLUME 8.2 fl (7.4-10.4); MONOCYTES % 5.9 % (2.0-8.0); NEUTROPHILS % 73.2 % (40.0-76.0); PLATELET 324 x1000/uL (130-400); RED BLOOD CELL COUNT 5.19 mill/uL (4.7-6.1); RED CELL DISTRIBUTION WIDTH 13.5 % (11.6-14.6); WHITE BLOOD COUNT 10.7 x1000/uL (4.5-11.0)
[2023-12-16] MEDS: LEVETIRACETAM 1000MG PREMIX 100 ML IV ONE (15:49)
[2023-12-16 15:50] LABS: CHLORIDE 110 mEq/L (98-107); POTASSIUM 3.7 mEq/L (3.5-5.1); SODIUM 142 mEq/L (136-145)
[2023-12-16] MEDS: SODIUM CHLORIDE 0.9% 1,000 ML IV ONE (15:50)
[2023-12-16 15:51] LABS: CARBON DIOXIDE 24 mEq/L (21-32)
[2023-12-16 15:52] LABS: CALCIUM 9.3 mg/dL (8.7-10.4)
[2023-12-16 15:56] LABS: CREATININE 1.1 mg/dL (0.6-1.3); GLUCOSE 102 mg/dL (70-105); UREA NITROGEN BLOOD 11 mg/dL (9-23)
[2023-12-16 20:45] VITALS: BP 121/79; PULSE 82; RESP 16; TEMP 97.8
== END 2023-12-16 20:52 | disposition home or self-care (01) ==
LOC: ER 15:20
DX: G40.909 Epilepsy, unspecified, not intractable, without status epilepticus (principal)
CPT/HCPCS: 80048; 85025; 36415; 96374; 99283; J1953; J7030; Z7610

== ENCOUNTER 2024-01-30 18:29 | Emergency (ER) | payer MEDICAID ==
[~2024-01-30] VITALS: Ht 172.7 cm; Wt 128.0 kg
[2024-01-30 18:32] VITALS: O2SAT 97
[2024-01-30 18:45] VITALS: BP 135/62; TEMP 97.7
[2024-01-30] MEDS ORDERED: LACTATED RINGERS 1,000 ML IV SCH (18:45)
[2024-01-30] MEDS: LEVETIRACETAM 500MG PREMIX 100 ML IV ONE ×2 (18:50→19:00)
[2024-01-30] MEDS ORDERED: ACETAMINOPHEN 325MG TABLET PO ONE (19:45)
[2024-01-30 19:51] LABS: HEMATOCRIT. 47.3 % (42.0-52.0); MEAN CORPUSCULAR HEMOGLOBIN 29.7 pg (28.0-32.0); MEAN CORPUSCULAR HGB CONC 33.7 g/dL (31.0-37.0); MEAN CORPUSCULAR VOLUME 88.2 fL (80.0-94.0); MEAN PLATELET VOLUME 8.1 fl (7.4-10.4); PLATELET 323 x1000/uL (130-400); RED BLOOD CELL COUNT 5.36 mill/uL (4.7-6.1); RED CELL DISTRIBUTION WIDTH 13.8 % (11.6-14.6); WHITE BLOOD COUNT 20.1 x1000/uL (4.5-11.0)
[2024-01-30 19:54] LABS: CHLORIDE 110 mEq/L (98-107); DIFFERENTIAL COMMENT 1; POTASSIUM 3.2 mEq/L (3.5-5.1); SODIUM 141 mEq/L (136-145)
[2024-01-30 19:55] LABS: CALCIUM 9.4 mg/dL (8.7-10.4); CARBON DIOXIDE 17 mEq/L (21-32)
[2024-01-30 20:00] LABS: CREATININE 1.2 mg/dL (0.6-1.3); GLUCOSE 108 mg/dL (70-105); UREA NITROGEN BLOOD 12 mg/dL (9-23)
[2024-01-30 20:02] LABS: ALANINE AMINOTRANSFERASE 34 IU/L (10-49); ALBUMIN 4.9 g/dL (3.2-4.8); ASPARTATE AMINOTRANSFERASE 25 IU/L (<34); BILIRUBIN TOTAL 0.3 mg/dL (0.1-1.0); PROTEIN TOTAL 7.7 g/dL (6.0-8.3)
[2024-01-30 20:18] LABS: PLATELET ESTIMATE NORMAL
[2024-01-30 20:28] VITALS: PULSE 89; RESP 18
[2024-01-30] MEDS ORDERED: POTASSIUM CHLORIDE 20MEQ/PACKET PO ONE (20:30)
== END 2024-01-30 21:36 | disposition home or self-care (01) ==
LOC: ER 18:29
DX: R56.9 Unspecified convulsions (principal); E87.6 Hypokalemia; Z91.012 Allergy to eggs; Z98.890 Other specified postprocedural states
CPT/HCPCS: 99291; 96374; 80053; 85025; 36415; 93005; J1953

== ENCOUNTER 2024-03-01 06:38 | Emergency (ER) | payer MEDICAID ==
[~2024-03-01] VITALS: Ht 175.3 cm; Wt 70.0 kg
[~2024-03-01 06:38] MED LIST changes: -KEPP250 PO; +KEPP500 PO; -LACO100T2 PO; -LAM15 PO; +LAMO150T5 PO
[2024-03-01 06:43] VITALS: O2SAT 100
[2024-03-01 07:55] LABS: BASOPHILS % 0.2 % (0.0-2.0); EOSINOPHILS % 0.2 % (0.0-5.0); HEMATOCRIT. 45.8 % (42.0-52.0); HEMOGLOBIN. 15.1 g/dL (14.0-18.0); LYMPHOCYTES % 7.3 % (20.0-50.0); MEAN CORPUSCULAR HEMOGLOBIN 28.6 pg (28.0-32.0); MEAN CORPUSCULAR VOLUME 86.7 fL (80.0-94.0); MEAN PLATELET VOLUME 8.8 fl (7.4-10.4); MONOCYTES % 7.4 % (2.0-8.0); NEUTROPHILS % 84.9 % (40.0-76.0); PLATELET 314 x1000/uL (130-400); RED BLOOD CELL COUNT 5.28 mill/uL (4.7-6.1); RED CELL DISTRIBUTION WIDTH 13.9 % (11.6-14.6); WHITE BLOOD COUNT 15.8 x1000/uL (4.5-11.0)
[2024-03-01 07:56] LABS: CHLORIDE 112 mEq/L (98-107); POTASSIUM 3.7 mEq/L (3.5-5.1); SODIUM 140 mEq/L (136-145)
[2024-03-01 07:57] LABS: CARBON DIOXIDE 20 mEq/L (21-32)
[2024-03-01 08:02] LABS: CREATININE 0.9 mg/dL (0.6-1.3); GLUCOSE 97 mg/dL (70-105)
[2024-03-01 08:03] LABS: UREA NITROGEN BLOOD 8 mg/dL (9-23)
[2024-03-01 08:04] LABS: CARBAMAZEPINE < 0.4 ug/mL (4-12); ETHANOL BLOOD < 10 mg/dL (<10); PHENOBARBITAL < 3.0 ug/mL (15.0-40.0); PHENYTOIN < 2.0 ug/mL (10-20)
[2024-03-01 08:05] LABS: VALPROIC ACID < 3.0 ug/mL (50-100)
[2024-03-01] MEDS: LEVETIRACETAM 1000MG PREMIX 100 ML IV ONE (08:28)
[2024-03-01] MEDS: SODIUM CHLORIDE 0.9% 1,000 ML IV ONE (08:28)
[2024-03-01 12:28] VITALS: BP 120/86; PULSE 74; RESP 16; TEMP 36.94740; O2SAT 100
== END 2024-03-01 12:54 | disposition home or self-care (01) ==
LOC: ER 06:38
DX: G40.909 Epilepsy, unspecified, not intractable, without status epilepticus (principal)
CPT/HCPCS: 80048; 80320; 80156; 80185; 80184; 80165; 85025; 36415; 96365; 99285; J1953; J7030; Z7610 ×3; G0480

== ENCOUNTER 2024-03-07 17:19 | Emergency (ER) | payer MEDICAID ==
[~2024-03-07] VITALS: Ht 172.7 cm; Wt 118.0 kg
[2024-03-07 17:22] VITALS: O2SAT 94
[2024-03-07 17:55] LABS: BASOPHILS % 0.5 % (0.0-2.0); EOSINOPHILS % 0.4 % (0.0-5.0); HEMATOCRIT. 45.4 % (42.0-52.0); HEMOGLOBIN. 15.4 g/dL (14.0-18.0); LYMPHOCYTES % 9.6 % (20.0-50.0); MEAN CORPUSCULAR HEMOGLOBIN 29.1 pg (28.0-32.0); MEAN CORPUSCULAR HGB CONC 33.9 g/dL (31.0-37.0); MEAN CORPUSCULAR VOLUME 85.9 fL (80.0-94.0); MEAN PLATELET VOLUME 7.8 fl (7.4-10.4); MONOCYTES % 5.2 % (2.0-8.0); NEUTROPHILS % 84.3 % (40.0-76.0); PLATELET 336 x1000/uL (130-400); RED BLOOD CELL COUNT 5.28 mill/uL (4.7-6.1); RED CELL DISTRIBUTION WIDTH 13.5 % (11.6-14.6); WHITE BLOOD COUNT 12.7 x1000/uL (4.5-11.0)
[2024-03-07 17:59] LABS: CHLORIDE 111 mEq/L (98-107); POTASSIUM 3.4 mEq/L (3.5-5.1); SODIUM 138 mEq/L (136-145)
[2024-03-07 18:00] LABS: CALCIUM 9.4 mg/dL (8.7-10.4); CARBON DIOXIDE 18 mEq/L (21-32)
[2024-03-07 18:05] LABS: CREATININE 0.9 mg/dL (0.6-1.3); GLUCOSE 120 mg/dL (70-105); UREA NITROGEN BLOOD 9 mg/dL (9-23)
[2024-03-07 18:07] LABS: ETHANOL BLOOD < 10 mg/dL (<10)
[2024-03-07] MEDS: LEVETIRACETAM 1000MG PREMIX 100 ML IV ONE (18:44)
[2024-03-07 19:09] VITALS: TEMP 36.39180
[2024-03-07 20:25] VITALS: BP 121/66; PULSE 78; RESP 21; O2SAT 95
[2024-03-07] MEDS: POTASSIUM CHLORIDE 20MEQ TABLET SR PO NR (21:19)
== END 2024-03-07 22:56 | disposition home or self-care (01) ==
LOC: ER 17:19
DX: R56.9 Unspecified convulsions (principal); Z98.890 Other specified postprocedural states; Z91.012 Allergy to eggs
CPT/HCPCS: 80048; 80320; 85025; 36415; 96365; 96366; 99284; J1953; G0480

== ENCOUNTER 2024-03-16 15:37 | Inpatient (IN) | payer MEDICAID ==
[~2024-03-16] VITALS: Ht 167.6 cm; Wt 135.6 kg
[2024-03-16] MEDS: LEVETIRACETAM 500MG PREMIX 100 ML IV ONE ×2 (15:45)
[2024-03-16 16:41] LABS: BASOPHILS % 0.7 % (0.0-2.0); EOSINOPHILS % 1.4 % (0.0-5.0); HEMATOCRIT. 44.2 % (42.0-52.0); HEMOGLOBIN. 15.2 g/dL (14.0-18.0); LYMPHOCYTES % 19.9 % (20.0-50.0); MEAN CORPUSCULAR HEMOGLOBIN 29.4 pg (28.0-32.0); MEAN CORPUSCULAR HGB CONC 34.4 g/dL (31.0-37.0); MEAN CORPUSCULAR VOLUME 85.4 fL (80.0-94.0); MEAN PLATELET VOLUME 7.9 fl (7.4-10.4); MONOCYTES % 7.6 % (2.0-8.0); NEUTROPHILS % 70.4 % (40.0-76.0); PLATELET 307 x1000/uL (130-400); RED BLOOD CELL COUNT 5.18 mill/uL (4.7-6.1); RED CELL DISTRIBUTION WIDTH 13.6 % (11.6-14.6); WHITE BLOOD COUNT 8.7 x1000/uL (4.5-11.0)
[2024-03-16 16:48] LABS: CHLORIDE 114 mEq/L (98-107); POTASSIUM 3.5 mEq/L (3.5-5.1); SODIUM 142 mEq/L (136-145)
[2024-03-16 16:49] LABS: CARBON DIOXIDE 22 mEq/L (21-32)
[2024-03-16] MEDS: LACTATED RINGERS 1,000 ML IV SCH (16:52)
[2024-03-16 16:54] LABS: GLUCOSE 102 mg/dL (70-105); UREA NITROGEN BLOOD 10 mg/dL (9-23)
[2024-03-16 16:56] LABS: ALANINE AMINOTRANSFERASE 20 IU/L (10-49); ALBUMIN 4.5 g/dL (3.2-4.8); ASPARTATE AMINOTRANSFERASE 17 IU/L (<34); BILIRUBIN TOTAL 0.3 mg/dL (0.1-1.0); PROTEIN TOTAL 7.2 g/dL (6.0-8.3)
[2024-03-16 23:15] VITALS: BP 119/54; PULSE 75; RESP 18; TEMP 36.50292; TEMP 36.5292; O2SAT 100
[2024-03-17] MEDS ORDERED: LORAZEPAM 2MG/ML INJ IV PRN (01:30)
[2024-03-17 04:00] VITALS: BP 124/62; PULSE 78; RESP 18; TEMP 36.44736; O2SAT 99
[2024-03-17 08:00] VITALS: BP 125/60; PULSE 75; RESP 18; TEMP 36.50292; O2SAT 99
[2024-03-17] MEDS: ZONISAMIDE 100MG CAPSULE PO SCH (09:06)
[2024-03-17] MEDS: LEVETIRACETAM 500MG TABLET PO SCH (09:06)
[2024-03-17] MEDS ORDERED: ACETAMINOPHEN 325MG TABLET PO PRN ×2 (11:45)
[2024-03-17] MEDS ORDERED: DOCUSATE SODIUM 100MG CAPSULE PO PRN (11:45)
[2024-03-17] MEDS ORDERED: IPRATROPIUM/ALBUTEROL 0.5-3(2.5)MG/3ML NEB HHN PRN (11:45)
[2024-03-17] MEDS ORDERED: CLONIDINE 0.1MG TABLET PO PRN (11:45)
[2024-03-17] MEDS ORDERED: ONDANSETRON HCL 4MG/2ML INJ IV PRN (11:45)
[2024-03-17 12:00] VITALS: BP 131/65; PULSE 94; RESP 18; TEMP 36.114; O2SAT 98
[2024-03-17 12:46] LABS: BASOPHILS % 0.5 % (0.0-2.0); EOSINOPHILS % 0.5 % (0.0-5.0); HEMATOCRIT. 44.5 % (42.0-52.0); HEMOGLOBIN. 14.7 g/dL (14.0-18.0); LYMPHOCYTES % 9.6 % (20.0-50.0); MEAN CORPUSCULAR HEMOGLOBIN 29.6 pg (28.0-32.0); MEAN CORPUSCULAR HGB CONC 33.1 g/dL (31.0-37.0); MEAN CORPUSCULAR VOLUME 89.4 fL (80.0-94.0); MONOCYTES % 5.1 % (2.0-8.0); NEUTROPHILS % 84.3 % (40.0-76.0); PLATELET 274 x1000/uL (130-400); RED BLOOD CELL COUNT 4.97 mill/uL (4.7-6.1); RED CELL DISTRIBUTION WIDTH 13.8 % (11.6-14.6)
[2024-03-17 12:51] LABS: CARBON DIOXIDE 20 mEq/L (21-32); CHLORIDE 111 mEq/L (98-107); POTASSIUM 3.6 mEq/L (3.5-5.1); SODIUM 139 mEq/L (136-145)
[2024-03-17 12:53] LABS: D-DIMER 0.46 mg/L FEU (<0.50); INR 0.9; PROTHROMBIN TIME 10.6 sec (9.6-11.0)
[2024-03-17 12:56] LABS: CREATININE 0.9 mg/dL (0.6-1.3)
[2024-03-17 12:57] LABS: CREATINE KINASE MB FRACTION < 0.5 ng/mL (0.5-3.6); GLUCOSE 104 mg/dL (70-105); TROPONIN I HIGH SENSITIVITY 4 ng/L (3.0-53); UREA NITROGEN BLOOD 9 mg/dL (9-23)
[2024-03-17 12:58] LABS: ALANINE AMINOTRANSFERASE 19 IU/L (10-49); ASPARTATE AMINOTRANSFERASE 16 IU/L (<34)
[2024-03-17 12:59] LABS: ALBUMIN 4.1 g/dL (3.2-4.8); BILIRUBIN DIRECT 0.1 mg/dL (<=3.0); BILIRUBIN TOTAL 0.4 mg/dL (0.1-1.0); CREATINE KINASE 54 IU/L (46-171); PHOSPHORUS 1.7 mg/dL (2.5-4.9); PROTEIN TOTAL 6.7 g/dL (6.0-8.3)
[2024-03-17 13:21] LABS: ETHANOL BLOOD < 10 mg/dL (<10)
[2024-03-17] MEDS: AMLODIPINE 5MG TABLET PO SCH (13:25)
[2024-03-17] MEDS: PANTOPRAZOLE SODIUM 40 MG/VIAL IV SCH (13:27)
[2024-03-17 16:00] VITALS: BP 130/67; PULSE 85; RESP 18; TEMP 36.22512; O2SAT 97
[2024-03-17 18:56] LABS: CLARITY URINE CLOUDY (CLEAR); COLOR URINE YELLOW (YELLOW); GLUCOSE URINE NEGATIVE (NEGATIVE); KETONES URINE NEGATIVE (NEGATIVE); LEUKOCYTE ESTERASE URINE NEGATIVE (NEGATIVE); NITRITE URINE NEGATIVE (NEGATIVE); OCCULT BLOOD URINE NEGATIVE (NEGATIVE); PH URINE 7.5 (4.5-8.0); PROTEIN URINE NEGATIVE (NEGATIVE); SPECIFIC GRAVITY URINE 1.017 (1.005-1.030)
[2024-03-17 19:17] LABS: *AMPHETAMINES SCREEN URINE NEGATIVE (NEGATIVE); *BARBITURATES SCREEN URINE NEGATIVE (NEGATIVE); *BENZODIAZEPINES SCREEN URINE NEGATIVE (NEGATIVE); *COCAINE SCREEN URINE NEGATIVE (NEGATIVE); CANNABINOID URINE SCREEN NEGATIVE (NEGATIVE); ECSTASY MDMA SCREEN URINE NEGATIVE (NEGATIVE); METHADONE URINE SCREEN NEGATIVE (NEGATIVE); OPIATES URINE SCREEN NEGATIVE (NEGATIVE); PHENCYCLIDINE URINE SCREEN NEGATIVE (NEGATIVE)
[2024-03-17 20:11] LABS: BACTERIA URINE 2+; RBC URINE 0-2 /hpf (0-2); SQUAMOUS EPITHELIAL CELL URINE FEW /lpf (RARE/1+); WBC URINE 0-2 /hpf (0-2)
[2024-03-17 20:57] VITALS: BP 123/59; PULSE 82; RESP 19; TEMP 36.3918
[2024-03-17] MEDS: LAMOTRIGINE 150MG TABLET PO SCH (23:02)
[2024-03-18] VITALS (9 sets, daily range): BP systolic 105–168; BP diastolic 49–78; PULSE 69–88; RESP 0–22; TEMP 36.3918–37.00296; O2SAT 97–100
[2024-03-18 07:15] LABS: CARBON DIOXIDE 20 mEq/L (21-32); CHLORIDE 111 mEq/L (98-107); POTASSIUM 3.7 mEq/L (3.5-5.1); SODIUM 141 mEq/L (136-145)
[2024-03-18 07:16] LABS: CALCIUM 9.2 mg/dL (8.7-10.4)
[2024-03-18 07:18] LABS: CREATININE 0.8 mg/dL (0.6-1.3)
[2024-03-18 07:21] LABS: GLUCOSE 85 mg/dL (70-105); UREA NITROGEN BLOOD 10 mg/dL (9-23)
[2024-03-18 08:38] LABS: BASOPHILS % 0.5 % (0.0-2.0); EOSINOPHILS % 1.3 % (0.0-5.0); HEMATOCRIT. 42.9 % (42.0-52.0); HEMOGLOBIN. 14.7 g/dL (14.0-18.0); LYMPHOCYTES % 26.4 % (20.0-50.0); MEAN CORPUSCULAR HEMOGLOBIN 29.6 pg (28.0-32.0); MEAN CORPUSCULAR HGB CONC 34.2 g/dL (31.0-37.0); MEAN CORPUSCULAR VOLUME 86.4 fL (80.0-94.0); MEAN PLATELET VOLUME 8.7 fl (7.4-10.4); MONOCYTES % 6.1 % (2.0-8.0); NEUTROPHILS % 65.7 % (40.0-76.0); PLATELET 264 x1000/uL (130-400); RED BLOOD CELL COUNT 4.96 mill/uL (4.7-6.1); RED CELL DISTRIBUTION WIDTH 13.5 % (11.6-14.6); WHITE BLOOD COUNT 7.9 x1000/uL (4.5-11.0)
[2024-03-19] VITALS (7 sets, daily range): BP systolic 105–121; BP diastolic 51–75; PULSE 71–91; RESP 18–20; TEMP 36.28068–36.9474; O2SAT 92–100
[2024-03-19] MEDS: ZONISAMIDE 100MG CAPSULE PO SCH (08:07)
[2024-03-19] MEDS: LACOSAMIDE 100MG TABLET PO SCH (08:08)
[2024-03-19] MEDS ORDERED: LACO100T2 MT (16:55)
[2024-03-19] MEDS ORDERED: LAMO150T5 MT (16:55)
[2024-03-20] MEDS ORDERED: FAMOTIDINE 20MG/2ML VIAL IV SCH (09:00)
== END 2024-03-19 21:00 | disposition home or self-care (01) | DRG 53 ==
LOC: ER 15:37 → EDBEDREQTM 17:05 → EDBEDREQ 17:05 → 5WST 19:57 → 7WST 22:43
PROVIDERS: ADMIT Internal Medicine; ATTEND Internal Medicine
PROC: 4A10X4Z Monitoring of Central Nervous Electrical Activity, External Approach (ICD-10-PCS; principal; 2024-03-18)
DX: G40.419 Other generalized epilepsy and epileptic syndromes, intractable, without status epilepticus (principal); E66.01 Morbid (severe) obesity due to excess calories; I10 Essential (primary) hypertension; Z68.42 Body mass index [BMI] 45.0-49.9, adult; F84.0 Autistic disorder; Z79.899 Other long term (current) drug therapy
CPT/HCPCS: 36415; 70551; 80048; 80053; 80076; 80305; 80320; 80339; 81003; 82542; 82550; 82553; 83036; 83605; 83735; 84100; 84145; 84484; 85025; 85379; 93005; 95816; 99285; J1953; J2470; G0480

== ENCOUNTER 2024-04-20 10:41 | Emergency (ER) | payer MEDICAID ==
[~2024-04-20] VITALS: Ht 175.3 cm; Wt 85.0 kg
[2024-04-20 10:46] VITALS: O2SAT 98
[2024-04-20 12:32] LABS: HEMATOCRIT. 46.1 % (42.0-52.0); HEMOGLOBIN. 14.9 g/dL (14.0-18.0); MEAN CORPUSCULAR HEMOGLOBIN 27.9 pg (28.0-32.0); MEAN CORPUSCULAR HGB CONC 32.3 g/dL (31.0-37.0); MEAN CORPUSCULAR VOLUME 86.4 fL (80.0-94.0); MEAN PLATELET VOLUME 8.1 fl (7.4-10.4); PLATELET 289 x1000/uL (130-400); RED BLOOD CELL COUNT 5.33 mill/uL (4.7-6.1); RED CELL DISTRIBUTION WIDTH 13.5 % (11.6-14.6); WHITE BLOOD COUNT 13.1 x1000/uL (4.5-11.0)
[2024-04-20 12:33] LABS: DIFFERENTIAL COMMENT 1
[2024-04-20 12:37] LABS: CHLORIDE 114 mEq/L (98-107); POTASSIUM 3.7 mEq/L (3.5-5.1); SODIUM 142 mEq/L (136-145)
[2024-04-20 12:39] LABS: CALCIUM 9.2 mg/dL (8.7-10.4); CARBON DIOXIDE 20 mEq/L (21-32)
[2024-04-20 12:44] LABS: CREATININE 0.9 mg/dL (0.6-1.3); GLUCOSE 96 mg/dL (70-105); UREA NITROGEN BLOOD 8 mg/dL (9-23)
[2024-04-20 12:46] LABS: ALANINE AMINOTRANSFERASE 14 IU/L (10-49); ALBUMIN 4.2 g/dL (3.2-4.8); ASPARTATE AMINOTRANSFERASE 14 IU/L (<34)
[2024-04-20 12:47] LABS: BILIRUBIN TOTAL 0.4 mg/dL (0.1-1.0); PROTEIN TOTAL 6.8 g/dL (6.0-8.3)
[2024-04-20 15:25] LABS: PLATELET ESTIMATE NORMAL
[2024-04-20 16:20] VITALS: BP 138/73; PULSE 78; RESP 17; TEMP 37.28076; O2SAT 100
[2024-04-23 13:07] LABS: LEVETIRACETAM / KEPPRA 7.6 ug/mL (10.0-40.0)
== END 2024-04-20 16:24 | disposition home or self-care (01) ==
LOC: ER 11:25
DX: G40.909 Epilepsy, unspecified, not intractable, without status epilepticus (principal); F84.0 Autistic disorder; Z91.012 Allergy to eggs
CPT/HCPCS: 80053; 83735; 85025; 36415; 99283; 82542 ×2; Z7610 ×3